=== PATIENT | female | born 1950 | race Caucasian/White ===

== ENCOUNTER 2019-03-23 12:27 | Emergency (ER) | payer OTHER ==
[2019-03-23] MEDS ORDERED: NA CHLORIDE 0.9% 1,000 ML ONE (13:05)
[2019-03-23 13:42] LABS: Absolute Lymphocytes (CBC) 1.2 K/uL (0.7-4.9); Basophils % 0.3 % (0-1.3); Hematocrit 39.9 % (36.0-45.0); Lymphocytes % 16.9 % (15.3-44.8); MPV 8.4 fL (7.6-11.3); RBC Red Blood Cell Count 4.66 M/uL (3.86-4.86)
[2019-03-23 13:55] LABS: Bilirubin Direct 0.1 mg/dL (0-0.2); Bilirubin Total 0.5 mg/dL (0.2-1.0); Potassium 3.7 mmol/L (3.5-5.1); Protein, Total 7.1 g/dL (6.4-8.2)
[2019-03-23 14:08] LABS: Urine Bacteria <20 /HPF (<20); Urine RBC <5 /HPF (NONE SEEN)
[2019-03-23 14:09] LABS: Urine Culture Reflex Order NOT NEEDED
[2019-03-23 14:30] LABS: Urine Blood NEGATIVE (NEG); Urine Glucose 2+ (NEG); Urine Protein NEGATIVE (NEG); Urine Specific Gravity 1.015 (1.005-1.030); Urine pH 5.5 (5.0-7.0)
--- NOTE | 2019-03-23 15:01 | RAD REPORT ---
EXAM DESCRIPTION: CTAbdomen Pelvis W Contrast - 03/23/2019 2:50 pm CLINICAL HISTORY: Abdominal pain. ABD PAIN COMPARISON: Abdomen Pelvis W Contrast dated 09/29/2016 TECHNIQUE: Biphasic CT imaging of the abdomen and pelvis was performed with 100 ml non-ionic IV cont rast. All CT scans are performed using dose optimization technique as appropriate and may include automated exposure control or mA/KV adjustment according to patient size. FINDINGS: The lung bases are clear. The liver, spleen, pancreas, adrenal glands and kidneys are within normal limits. Cholecystectomy. No bowel obstruction, free air, free fluid or abscess. Moderate stool is present in the colon with mu ltiple diverticula noted. No evidence of diverticulitis. The appendix is not identified as a discrete structure, however, no secondary findings of appendicitis are identified. No evidence of significa nt lymphadenopathy. No suspicious bony findings. IMPRESSION: No acute intra-abdominal or pelvic finding. Diverticulosis coli without diverticulitis.
--- NOTE | 2019-03-23 15:21 | EDPHYS ---
Physician Documentation [facility] Name: Kylee Lyles Age: 69 yrs Sex: Female : 1950 Arrival Date: 03/23/2019 Time: 12:30 Bed 17 Private MD: Wero Jernigan ED Physician Tru More HPI: 03/23 14:12 This 69 yrs old Female presents to ER via Ambulatory with complaints of pm1 Abdominal Pain. 14:12 The patient presents with abdominal pain right lower quadrant. Onset: The pm1 symptoms/episode began/occurred 6 week(s) ago, and became worse this morning. The symptoms do not radiate. Associated signs and symptoms: Pertinent negatives: nausea, vomiting, and diarrhea, chest pain, fever, shortness of breath. Associated signs and symptoms: Pertinent positives: Reports baseline urinary frequency. The symptoms are described as sharp. Modifying factors: The symptoms are alleviated by nothing, the symptoms are aggravated by nothing. Severity of pain: in the emergency department the pain has improved. The patient has not experienced similar symptoms in the past. The patient has not recently seen a physician. Historical: - Allergies: 12:38 No Known Allergies; aj1 - Home Meds: 12:38 metoprolol tartrate 50 mg Oral tab 1 tab 2 times per day [Active]; irbesartan 300 mg aj1 oral tab 1 tab once daily [Active]; pravastatin 40 mg oral tab 1 tab once daily [Active]; Jardiance 10 mg oral tab 1 tab once daily [Active]; Victoza 2-Jonathan 0.6 mg/0.1 mL (18 mg/3 mL) subcutaneous pnij 0.2 mL once daily [Active]; metformin 500 mg Oral Tb24 2 tabs 2 times per day [Active]; amlodipine 5 mg tab 1 tab once daily [Active]; aspirin 81 mg Oral chew 1 tab once daily [Active]; Probiotic oral oral daily [Active]; CoQ-10 oral oral daily [Active]; Fish Oil oral oral [Active]; multivitamin oral oral [Active]; - PMHx: 12:38 Diabetes - NIDDM; Hypertension; Hyperlipidemia; aj1 - Immunization history:: Flu vaccine is up to date. - Social history:: Smoking status: Patient/guardian denies using tobacco. - Ebola Screening: : Patient denies travel to an Ebola-affected area in the 21 days before illness onset. ROS: 14:12 Constitutional: Negative for fever, chills, and weight loss, Eyes: Negative for injury, pm1 pain, redness, and discharge, ENT: Negative for injury, pain, and discharge, Neck: Negative for injury, pain, and swelling, Cardiovascular: Negative for chest pain, palpitations, and edema, Respiratory: Negative for shortness of breath, cough, wheezing, and pleuritic chest pain. 14:12 Back: Negative for injury and pain. 14:12 MS/Extremity: Negative for injury and deformity, Skin: Negative for injury, rash, and discoloration. 14:12 Neuro: Negative for headache, weakness, numbness, tingling, and seizure. 14:12 Abdomen/GI: Positive for abdominal pain, Negative for nausea, vomiting, and diarrhea. 14:12 : Positive for urinary frequency, Negative for burning with urination. Exam: 14:12 Constitutional: This is a well developed, well nourished patient who is awake, alert, pm1 and in no acute distress. Head/Face: Normocephalic, atraumatic. Eyes: Pupils equal round and reactive to light, extra-ocular motions intact. Lids and lashes normal. Conjunctiva and sclera are non-icteric and not injected. Cornea within normal limits. Periorbital areas with no swelling, redness, or edema. ENT: Nares patent. No nasal discharge, no septal abnormalities noted. Tympanic membranes are normal and external auditory canals are clear. Oropharynx with no redness, swelling, or masses, exudates, or evidence of obstruction, uvula midline. Mucous membranes moist. Neck: Trachea midline, no thyromegaly or masses palpated, and no cervical lymphadenopathy. Supple, full range of motion without nuchal rigidity, or vertebral point tenderness. No Meningismus. Chest/axilla: Normal chest wall appearance and motion. Nontender with no deformity. No lesions are appreciated. Cardiovascular: Regular rate and rhythm with a normal S1 and S2. No gallops, murmurs, or rubs. Normal PMI, no JVD. No pulse deficits. Respiratory: Lungs have equal breath sounds bilaterally, clear to auscultation and percussion. No rales, rhonchi or wheezes noted. No increased work of breathing, no retractions or nasal flaring. 14:12 Back: No spinal tenderness. No costovertebral tenderness. Full range of motion. Skin: Warm, dry with normal turgor. Normal color with no rashes, no lesions, and no evidence of cellulitis. MS/ Extremity: Pulses equal, no cyanosis. Neurovascular intact. Full, normal range of motion. 14:12 Abdomen/GI: Inspection: obese Bowel sounds: normal, Palpation: soft, mild abdominal tenderness, in the right lower quadrant, mass, is not appreciated, rebound tenderness, is not appreciated. 14:12 Neuro: Orientation: is normal, Motor: is normal, moves all fours. 15:18 Abdomen/GI: Inspection: obese Bowel sounds: normal, Palpation: abdomen is soft and pm1 non-tender, in all quadrants, mass, is not appreciated, rebound tenderness, is not appreciated. Vital Signs: 12:38 BP 152 / 89; Pulse 72; Resp 18; Temp 97.0; Pulse Ox 96% on R/A; Weight 69.4 kg (R); aj1 Height 5 ft. 0 in. (152.40 cm) (R); Pain 2/10; 13:24 BP 150 / 77; Pulse 74; Resp 16; Pulse Ox 99% ; bp 14:20 BP 151 / 77; Pulse 80; Resp 18; Pulse Ox 97% ; bp 15:30 BP 153 / 75; Pulse 81; Resp 16; Temp 97; Pulse Ox 97% ; bp 12:38 Body Mass Index 29.88 (69.40 kg, 152.40 cm) aj1 MDM: 12:43 Patient medically screened. pm1 14:16 Data reviewed: vital signs. Data interpreted: Pulse oximetry: on room air is 99 %. pm1 Interpretation: normal. 15:19 Counseling: I had a detailed discussion with the patient and/or guardian regarding: the pm1 historical points, exam findings, and any diagnostic results supporting the discharge/admit diagnosis, lab results, radiology results. 15:19 Special discussion: Based on the patient's Hx, exam, and Dx evaluation, there is no pm1 indication for emergent surgery or inpatient Tx. It is understood by the patient/guardian that if the Sx's persist or worsen they need to return immediately for re-evaluation. 03/23 12:43 Order name: Basic Metabolic Panel; Complete Time: 14:37 pm1 03/23 12:43 Order name: CBC with Diff; Complete Time: 13:45 pm1 03/23 12:43 Order name: Creatinine for Radiology; Complete Time: 14:37 pm1 03/23 12:43 Order name: Hepatic Function; Complete Time: 14:37 pm1 03/23 12:43 Order name: Lipase; Complete Time: 14:37 pm1 03/23 12:55 Order name: Urine Microscopic Only; Complete Time: 14:37 pm1 03/23 12:43 Order name: IV Saline Lock; Complete Time: 13:25 pm1 03/23 12:43 Order name: Labs collected and sent; Complete Time: 13:25 pm1 03/23 12:54 Order name: CT Abd/Pelvis - PO and IV Contrast; Complete Time: 15:04 pm1 03/23 12:55 Order name: Urine Dipstick-Ancillary (obtain specimen); Complete Time: 13:25 pm1 03/23 13:44 Order name: Urine Dipstick--Ancillary (enter results); Complete Time: 14:37 mt Administered Medications: 13:10 Drug: NS 0.9% 1000 ml Route: IV; Rate: 1000 ml; Site: left antecubital; bp 15:51 Follow up: IV Status: Completed infusion; IV Intake: 1000ml bp Disposition: 17:36 Co-signature as Attending Physician, Tru More MD. rn Disposition: 03/23/19 15:20 Discharged to Home. Impression: Unspecified abdominal pain. - Condition is Stable. - Discharge Instructions: Abdominal Pain, Adult. - Prescriptions for Bentyl 20 mg Oral Tablet - take 1 tablet by ORAL route every 6 hours As needed; 20 tablet. - Medication Reconciliation Form, Thank You Letter, Antibiotic Education, Prescription Opioid Use form. - Follow up: Emergency Department; When: As needed; Reason: Worsening of condition. Follow up: Private Physician; When: 2 - 3 days; Reason: Recheck today's complaints, Continuance of care, Re-evaluation by your physician. - Problem is new. - Symptoms have improved. Signatures: Dispatcher [employer] EDMS Debra Johnson RN RN aj1 Tru More MD MD rn Marinas, Patrick, SENIOR CORE JAVA DEVELOPER SENIOR CORE JAVA DEVELOPER pm1 Wero Upton RN RN bp Corrections: (The following items were deleted from the chart) 15:52 15:20 03/23/2019 15:20 Discharged to Home. Impression: Unspecified abdominal pain. bp Condition is Stable. Forms are Medication Reconciliation Form, Thank You Letter, Antibiotic Education, Prescription Opioid Use. Follow up: Emergency Department; When: As needed; Reason: Worsening of condition. Follow up: Private Physician; When: 2 - 3 days; Reason: Recheck today's complaints, Continuance of care, Re-evaluation by your physician. Problem is new. Symptoms have improved. pm1
--- NOTE | 2019-03-23 15:21 | ER ---
Nurse's Notes [facility] Name: Kylee Lyles Age: 69 yrs Sex: Female : 1950 Arrival Date: 03/23/2019 Time: 12:30 Bed 17 Private MD: Wero Jernigan Diagnosis: Unspecified abdominal pain Presentation: 03/23 12:31 Presenting complaint: Patient states: RLQ pain since 0500 this morning. Reports that aj1 she has had this pain off and on for the past 6 weeks, but today the pain is more severe and persistent than it has been previously. Denies N/V/D. Transition of care: patient was not received from another setting of care. Onset of symptoms was March 23, 2019. Risk Assessment: Do you want to hurt yourself or someone else? Patient reports no desire to harm self or others. Initial Sepsis Screen: Does the patient meet any 2 criteria? No. Patient's initial sepsis screen is negative. Does the patient have a suspected source of infection? Yes: Acute abdominal pain. Care prior to arrival: None. 12:31 Method Of Arrival: Ambulatory [facility] 12:31 Acuity: COLLIN 3 aj1 Triage Assessment: 12:38 General: Appears in no apparent distress. comfortable, Behavior is calm, cooperative, aj1 appropriate for age. Pain: Complains of pain in right lower quadrant Pain currently is 2 out of 10 on a pain scale. Neuro: Level of Consciousness is awake, alert, obeys commands. Cardiovascular: Patient's skin is warm and dry. Respiratory: Airway is patent Respiratory effort is even, unlabored, Respiratory pattern is regular, symmetrical. GI: Reports lower abdominal pain. Historical: - Allergies: 12:38 No Known Allergies; aj1 - Home Meds: 12:38 metoprolol tartrate 50 mg Oral tab 1 tab 2 times per day [Active]; irbesartan 300 mg aj1 oral tab 1 tab once daily [Active]; pravastatin 40 mg oral tab 1 tab once daily [Active]; Jardiance 10 mg oral tab 1 tab once daily [Active]; Victoza 2-Jonathan 0.6 mg/0.1 mL (18 mg/3 mL) subcutaneous pnij 0.2 mL once daily [Active]; metformin 500 mg Oral Tb24 2 tabs 2 times per day [Active]; amlodipine 5 mg tab 1 tab once daily [Active]; aspirin 81 mg Oral chew 1 tab once daily [Active]; Probiotic oral oral daily [Active]; CoQ-10 oral oral daily [Active]; Fish Oil oral oral [Active]; multivitamin oral oral [Active]; - PMHx: 12:38 Diabetes - NIDDM; Hypertension; Hyperlipidemia; aj1 - Immunization history:: Flu vaccine is up to date. - Social history:: Smoking status: Patient/guardian denies using tobacco. - Ebola Screening: : Patient denies travel to an Ebola-affected area in the 21 days before illness onset. Screenin:43 Abuse screen: Denies threats or abuse. Denies injuries from another. Nutritional bp screening: No deficits noted. Tuberculosis screening: No symptoms or risk factors identified. Fall Risk None identified. Assessment: 12:43 General: SEE TRIAGE NOTE. bp 13:23 Reassessment: PT COMPLETED PO CHALLENGE, CT NOTIFIED. bp 15:49 Reassessment: PT D/C HOME AMBULATORY WITH FAMILY, DX WITH ABDOMINAL PAIN. bp Vital Signs: 12:38 BP 152 / 89; Pulse 72; Resp 18; Temp 97.0; Pulse Ox 96% on R/A; Weight 69.4 kg (R); aj1 Height 5 ft. 0 in. (152.40 cm) (R); Pain 2/10; 13:24 BP 150 / 77; Pulse 74; Resp 16; Pulse Ox 99% ; bp 14:20 BP 151 / 77; Pulse 80; Resp 18; Pulse Ox 97% ; bp 15:30 BP 153 / 75; Pulse 81; Resp 16; Temp 97; Pulse Ox 97% ; bp 12:38 Body Mass Index 29.88 (69.40 kg, 152.40 cm) aj1 ED Course: 12:30 Patient arrived in ED. mr 12:30 Wero Jernigan MD is Private Physician. mr 12:34 Triage completed. aj1 12:38 Arm band placed on Patient placed in an exam room. aj1 12:43 Wero Upton RN is Primary Nurse. bp 12:43 Reji Jane NP is PHCP. pm1 12:43 Tru More MD is Attending Physician. pm1 12:43 Patient has correct armband on for positive identification. Bed in low position. Call bp light in reach. Side rails up X2. Adult w/ patient. 13:22 Initial lab(s) drawn, by me, sent to lab. Inserted saline lock: 20 gauge in left lt1 antecubital area, using aseptic technique. 14:50 CT completed. Patient tolerated procedure well. Patient moved back from CT. kw1 14:50 CT Abd/Pelvis - PO and IV Contrast In Process Unspecified. EDMS 15:51 No provider procedures requiring assistance completed. IV discontinued, intact, bp bleeding controlled, No redness/swelling at site. Pressure dressing applied. Administered Medications: 13:10 Drug: NS 0.9% 1000 ml Route: IV; Rate: 1000 ml; Site: left antecubital; bp 15:51 Follow up: IV Status: Completed infusion; IV Intake: 1000ml bp Intake: 15:51 IV: 1000ml; Total: 1000ml. bp Outcome: 15:20 Discharge ordered by MD. pm1 15:49 Discharged to home ambulatory, with family. bp 15:49 Condition: stable 15:49 Discharge instructions given to patient, Instructed on discharge instructions, follow up and referral plans. medication usage, Demonstrated understanding of instructions, follow-up care, medications, Prescriptions given X 1. 15:52 Patient left the ED. bp Signatures: Dispatcher [employer] EDMS Debra Johnson RN RN aj1 Gema Silva mr Reji Jane, VETERINARIAN EPIDEMIOLOGIST VETERINARIAN EPIDEMIOLOGIST pm1 Wero Upton RN RN [place] kw1 Brigida Deluca lt1
[2019-03-23 16:02] VITALS: O2SAT 97
[2019-03-23 16:03] VITALS: BP 153/75; TEMP 97
== END 2019-03-23 15:52 | disposition home or self-care (01) ==
LOC: ER 12:27
DX: R10.31 Right lower quadrant pain (principal); I10 Essential (primary) hypertension; E11.9 Type 2 diabetes mellitus without complications; E78.5 Hyperlipidemia, unspecified; Z79.4 Long term (current) use of insulin; Z79.82 Long term (current) use of aspirin
CPT/HCPCS: 96361; 85025; 80048; 36415; 80076; 83690; 74177; 96360; 99284; Q9967; J7030; 81003; 81015

== ENCOUNTER 2020-10-13 14:06 | Emergency (ER) | payer OTHER ==
--- OUTSIDE RECORDS SUMMARY | 2020-10-13 14:08 | XMS REPORT | Continuity of Care Document ---
:1950 Author Organization [facility] t Address [address] [place] [address] Care Team Providers Name Role Phone Unavailable Unavailable Unavailable Payers Payer Name Policy Type Policy Number Effective Date Expiration Date S ource Problems This patient has no known problems. Allergies, Adverse Reactions, Alerts This patient has no known allergies or adverse reactions. Medications This patient has no known medications. Procedures This patient has no known procedures. Results Test Description Test Time Test Comments Results Result [facility] e Comments - MRI UP [facility] W/O 2020-02-19 Patient Name: CONT RT 14:06:00 LUANN KAY Unit No: [id number] EXAMS: CPT CODE: [id number] MRI UP [facility] W/[place] [id number] MRI OF THE RIGHT SHOULDER DIAGNOSIS: 1. Partial tear of the superior subscapularis tendon and of the proximal biceps tendon with tendinosis and medial subluxation of the biceps tendon. There is an associated SLAP tear of the labrum which extends into the posterior superior labrum. 2. Low-grade partial-thickness intrasubstance tearing of the supraspinatus tendon without tendon retraction or muscular atrophy. COMMENT: COMPARISON: No prior exams available. Scans were performed in the paracoronal, parasagittal and axial planes utilizing T1 , spin density with fat saturation and T2-weighting with and without fat saturation. The infraspinatus tendon is within normal limits in appearance. The remainder the rotator cuff is as described. The acromion is horizontal with AC joint degenerative change. The labrum is torn as noted. A moderate joint effusion is seen with a small amount of bursal fluid. at 1406 Reported and signed by: Praneeth Varma MD CC: Daniel Stallings MD Technologist: Candace Gonzalez(R) Transcribed D/ (2181) [facility] NAME: LUANN KAY [address] [place] [address] PHYS: Daniel Gomez MD : 1950 AGE: 70 SEX: F [place] [id number] LOC: Y.MRI PHONE #: [phone] EXAM DATE: 02/19/2020 STATUS: REG CLI FAX #: [phone] RAD #: D/C DT PAGE 1 Signed Report Patient Name: LUANN KAY Unit No: [id number] EXAMS: CPT CODE: [id number] MRI UP JNT W/[place] [id number] <Continued> Orig Print D/T: S: 02/19/2020 (2451) [facility] NAME: LUANN KAY [address] [place] [address] PHYS: Daniel Gomez MD : 1950 AGE: 70 SEX: F [place] [phone] LOC: Y.MRI PHONE #: [phone] EXAM DATE: 02/19/2020 STATUS: REG CLI FAX #: [phone] RAD #: D/C DT PAGE 2 Signed Report
[2020-10-13] MEDS ORDERED: BUPIVACAINE 0.5% PF 10 ML VIAL ONE (15:56)
[2020-10-13] MEDS ORDERED: LIDOCAINE 1% MPF 5 ML VIAL ONE (15:56)
--- NOTE | 2020-10-13 16:04 | ER ---
Nurse's Notes [facility] Name: Kylee Lyles Age: 70 yrs Sex: Female : 1950 Arrival Date: 10/13/2020 Time: 14:10 Bed 14 Private MD: Diagnosis: Cutaneous abscess of left upper limb-paronychia left index finger Presentation: 10/13 14:24 Chief complaint: Patient states: L hand 2nd digit pain, swelling to nailbed area for [address] Lainez, been on Augmentin since Sunday. States it hurts a lot when she bumps it. States her fever is higher than normal for her (usual temp. 97 range). Coronavirus screen: Client denies travel out of the [place] in the last 14 days. At this time, the client does not indicate any symptoms associated with coronavirus-19. Ebola Screen: Patient denies travel to an Ebola-affected area in the 21 days before illness onset. Initial Sepsis Screen: Does the patient meet any 2 criteria? No. Patient's initial sepsis screen is negative. Does the patient have a suspected source of infection? Yes: Skin breakdown/wound. Risk Assessment: Do you want to hurt yourself or someone else? Patient reports no desire to harm self or others. Onset of symptoms was October 07, 2020. 14:24 Method Of Arrival: Ambulatory ll1 14:24 Acuity: COLLIN 4 ll1 Historical: - Allergies: 14:29 No Known Allergies; ll1 - PMHx: 14:29 Diabetes - NIDDM; Hyperlipidemia; Hypertension; ll1 - PSHx: 14:29 bone spur removed from toe; thumb SX-L; rotator cuff repair; tumor removed L ll1 Lung-benign; Cholecystectomy; ; - Immunization history:: Client reports receiving the 2nd dose of the Covid vaccine, Flu vaccine is up to date. - Social history:: Smoking status: Patient denies any tobacco usage or history of. Screenin:28 Abuse screen: Denies threats or abuse. Denies injuries from another. Nutritional zb screening: No deficits noted. Tuberculosis screening: No symptoms or risk factors identified. Fall Risk None identified. Assessment: 15:12 Reassessment: ECP at bedside. zb 15:20 General: Appears in no apparent distress. Behavior is calm, cooperative, appropriate zb for age. Pain: Complains of pain in left index finger Pain currently is 0 out of 10 on a pain scale. at worst was 10 out of 10 on a pain scale. Neuro: No deficits noted. Cardiovascular: No deficits noted. Respiratory: No deficits noted. GI: No deficits noted. : No deficits noted. Derm: Abscess located on left index finger is dime sized, is red, is raised. Musculoskeletal: Circulation, motion, and sensation intact. Range of motion: intact in all extremities. 16:29 Reassessment: Patient appears in no apparent distress at this time. Patient and/or zb family updated on plan of care and expected duration. Pain level reassessed. Patient is alert, oriented x 3, equal unlabored respirations, skin warm/dry/pink. wound shobha wrapped. patient ready to go. d/c instructions given gait even and steady. Vital Signs: 14:24 BP 183 / 65; Pulse 78; Resp 17; Temp 98.4; Pulse Ox 96% ; Weight 67.59 kg; Pain 7/10; ll1 15:36 BP 164 / 82; Pulse 78; Resp 16; Pulse Ox 100% on R/A; zb ED Course: 14:10 Patient arrived in ED. as 14:27 Triage completed. ll1 14:29 Arm band placed on. ll1 14:30 Polo Brady PA is PHCP. cp 14:30 Tru More MD is Attending Physician. cp 15:10 Diana Corea, ALFREDO is Primary Nurse. zb 15:10 Patient placed in an exam room, on a stretcher. ll1 16:28 No provider procedures requiring assistance completed. Patient did not have IV access zb during this emergency room visit. 16:29 Patient has correct armband on for positive identification. Bed in low position. Call zb light in reach. Side rails up X 1. Pulse ox on. NIBP on. Door closed. Noise minimized. Administered Medications: 15:38 Drug: Lidocaine (1 %) 5 mg {Note: Give to ECP to administer.} Route: Infiltration; zb 16:20 Follow up: Response: No adverse reaction; Marked relief of symptoms zb 15:38 Drug: Marcaine (bupivacaine) (0.5 %) 5 ml {Note: Give to ECP to adminster.} Volume: 10 zb ml; Route: Infiltration; 16:20 Follow up: Response: No adverse reaction; Marked relief of symptoms zb Outcome: 16:03 Discharge ordered by . cp 16:29 Discharged to home ambulatory. zb 16:29 Condition: stable 16:29 Discharge instructions given to patient, Instructed on discharge instructions, follow up and referral plans. medication usage, Demonstrated understanding of instructions, follow-up care, medications, Prescriptions given X 1. 16:29 Patient left the ED. zb Signatures: Krysten Ford Corey, PA PA cp Lewis, Lynsay, ALFREDO RN ll1 Diana Corea RN RN zb Corrections: (The following items were deleted from the chart) 23:29 16:30 Reassessment: Patient appears in no apparent distress at this time. Patient zb and/or family updated on plan of care and expected duration. Pain level reassessed. Patient is alert, oriented x 3, equal unlabored respirations, skin warm/dry/pink. wound shobha wrapped. patient ready to go. d/c instructions given gait even and steady zb
--- NOTE | 2020-10-13 16:04 | EDPHYS ---
Physician Documentation [facility] Name: Kylee Lyles Age: 70 yrs Sex: Female : 1950 Arrival Date: 10/13/2020 Time: 14:10 Bed 14 Private MD: ED Physician Tru More HPI: 10/13 15:20 This 70 yrs old Female presents to ER via Ambulatory with complaints of cp Finger Infection. 15:20 The patient presents with an abscess of the left index finger, the patient presents cp with a swollen area of the left index finger. Description: erythematous, swollen. Onset: The symptoms/episode began/occurred last week. Associated signs and symptoms: Pertinent negatives: discharge, drainage, fever. Patient reports she is currently taking Augmentin for infection of left index finger. Historical: - Allergies: 14:29 No Known Allergies; ll1 - PMHx: 14:29 Diabetes - NIDDM; Hyperlipidemia; Hypertension; ll1 - PSHx: 14:29 bone spur removed from toe; thumb SX-L; rotator cuff repair; tumor removed L ll1 Lung-benign; Cholecystectomy; ; - Immunization history:: Client reports receiving the 2nd dose of the Covid vaccine, Flu vaccine is up to date. - Social history:: Smoking status: Patient denies any tobacco usage or history of. ROS: 15:25 Skin: Positive for abscess, swelling, of the left index finger. cp 15:25 Constitutional: Negative for chills, fever. cp 15:25 All other systems are negative. Exam: 15:30 Constitutional: The patient appears in no acute distress, alert, awake, non-toxic, well cp developed, well nourished. 15:30 Head/Face: Normocephalic, atraumatic. cp 15:30 Cardiovascular: Rate: normal. 15:30 Respiratory: the patient does not display signs of respiratory distress, Respirations: normal. 15:30 Skin: abscess, that is small, of the lateral nail margin of left index finger, with surrounding cellulitis, that is mild. Vital Signs: 14:24 BP 183 / 65; Pulse 78; Resp 17; Temp 98.4; Pulse Ox 96% ; Weight 67.59 kg; Pain 7/10; ll1 15:36 BP 164 / 82; Pulse 78; Resp 16; Pulse Ox 100% on R/A; zb Procedures: 16:00 I \T\ D: Incision and drainage was performed for an abscess of the lateral margin on nail cp left index finger Prepped with Betadine, Anesthetized with 5 ccs of 1% lidocaine w/o epi and 0.5% marcaine. Incised with #11 blade. Drained small amount purulent fluid. Dressin by 2 gauze and coban the patient tolerated the procedure well. MDM: 15:13 Patient medically screened. cp 15:30 Differential diagnosis: abscess, cellulitis, insect bite. cp 16:02 Data reviewed: vital signs, nurses notes, and as a result, I will discharge patient. cp 16:02 Counseling: I had a detailed discussion with the patient and/or guardian regarding: the cp historical points, exam findings, and any diagnostic results supporting the discharge/admit diagnosis, to return to the emergency department if symptoms worsen or persist or if there are any questions or concerns that arise at home. Response to treatment: the patient's symptoms have markedly improved after treatment, and as a result, I will discharge patient. Administered Medications: 15:38 Drug: Lidocaine (1 %) 5 mg {Note: Give to ECP to administer.} Route: Infiltration; zb 16:20 Follow up: Response: No adverse reaction; Marked relief of symptoms zb 15:38 Drug: Marcaine (bupivacaine) (0.5 %) 5 ml {Note: Give to ECP to adminster.} Volume: 10 zb ml; Route: Infiltration; 16:20 Follow up: Response: No adverse reaction; Marked relief of symptoms zb Disposition: 16:30 Chart complete. cp 17:30 Co-signature as Attending Physician, Tru More MD. rn Disposition: 10/13/20 16:03 Discharged to Home. Impression: Cutaneous abscess of left upper limb - paronychia left index finger. - Condition is Stable. - Discharge Instructions: Incision and Drainage, Paronychia. - Prescriptions for Bactrim DS 800- 160 mg Oral Tablet - take 1 tablet by ORAL route every 12 hours for 7 days; 14 tablet. - Medication Reconciliation Form, Thank You Letter, Antibiotic Education, Prescription Opioid Use form. - Follow up: Private Physician; When: 1 - 2 days; Reason: Worsening of condition. - Problem is new. - Symptoms have improved. Signatures: Tru More MD MD rn Polo Brady PA PA cp Isabela Robins RN RN ll1 Diana Corea RN RN zb Corrections: (The following items were deleted from the chart) 16:29 16:03 10/13/2020 16:03 Discharged to Home. Impression: Cutaneous abscess of left upper zb limb - paronychia left index finger. Condition is Stable. Forms are Medication Reconciliation Form, Thank You Letter, Antibiotic Education, Prescription Opioid Use. Follow up: Private Physician; When: 1 - 2 days; Reason: Worsening of condition. Problem is new. Symptoms have improved. cp
[2020-10-13 16:35] VITALS: BP 183/65; TEMP 98.4; O2SAT 96
== END 2020-10-13 16:29 | disposition home or self-care (01) ==
LOC: ER 14:06
PROC: 0J9K0ZZ Drainage of Left Hand Subcutaneous Tissue and Fascia, Open Approach (ICD-10-PCS; principal; 2020-10-13)
DX: L03.012 Cellulitis of left finger (principal); I10 Essential (primary) hypertension
CPT/HCPCS: 99283

== ENCOUNTER → 2023-05-20 | Emergency (ER) | payer OTHER ==
[~2023-05-20] MED LIST: dexAMETHasone 10 MG/ML VIAL ONE
--- OUTSIDE RECORDS SUMMARY | 2023-05-20 15:50 | XMS REPORT | Continuity of Care Document ---
Author Name Unknown Address [address] [facility] [address] [place] [address] [facility] Address [address] [facility] [address] [place] [address] Care Team Providers Care Saw Filer Name Role Phone Tommy Lainez Attending Clinician Unavailable Daniel Stallings Attending Clinician Unavailab SURENDRA Garvey Admitting Clinician Unavailable Payers Payer Name Policy Type Policy Number Effective Date Expirati on Date Source Problems Condition Name Condition Details Condition Category Status Onset Date Resolution Date Last Treatment Date Treating Clinician Comments Source [id number] Essential (primary) hypertensi on Problem Common [facility] Chronic sinusitis Sinus infection Problem [facility] [id number] Irritable bowel syndrome with both constipati on and diarrhea Problem [facility] [id number] Type 2 diabetes mellitus with hyperglyce jonny, without long-term current use of insulin Problem [facility] [id number] Mixed hyperlipid emia Problem [facility] [id number] Primary osteoarthr itis of left knee Problem [facility] Social History Social Habit Start Date Stop Date Quantity Comments Source History of Tobacco Use [facility] Sex Assigned At [facility] Smoking Status Start Date Stop Date Source Never Smoker [facility] Medications Ordered Medication Name Filled Medication Name Start Date Stop Date Current Medication? Ordering Clinician Indication Dosage Frequency Signature (SIG) Comments Components Source NovoTwist Pen Needle 32G X 5 MM NovoTwist Pen Needle 32G X 5 MM 08-03 00:00: 00 No NovoTwist Pen Needle 32G X 5 MM NovoTwist Pen Needle 32G X 5 MM NovoTwist Pen Needle 32G X 5 MM 08-03 00:00: 00 No NovoTwist Pen Needle 32G X 5 MM NovoTwist Pen Needle 32G X 5 MM NovoTwist Pen Needle 32G X 5 MM 08-03 00:00: 00 No NovoTwist Pen Needle 32G X 5 MM Pen [place] 32G X 5 MM Pen [place] 32G X 5 MM 2020-05 00:00: 00 No Pen [place] 32G X 5 MM Pen [place] 32G X 5 MM Pen [place] 32G X 5 MM 2020-05 2 00:00: 00 No Pen [place] 32G X 5 MM Pen [place] 32G X 5 MM Pen [place] 32G X 5 MM 2020-05 00:00: 00 No Pen [place] 32G X 5 MM Estradiol 10 MCG Estradiol 10 MCG No Estradiol 10 MCG Nitroglycer in 400 MCG/SPRAY Nitroglycer in 400 MCG/SPRAY No Nitroglyce rin 400 MCG/SPRAY Pravastatin Sodium 40 MG Pravastatin Sodium 40 MG No Pravastati n Sodium 40 MG Aspirin 81 81 MG Aspirin 81 81 MG No 1{table t} QD Aspirin 81 81 MG Jardiance 10 MG Jardiance 10 MG No QD Jardiance 10 MG Fish Oil 1000 MG Fish Oil 1000 MG No 1{capsu le} QD Fish Oil 1000 MG Probiotic - Probiotic - No Pr obiotic - metFORMIN HCl ER 500 MG metFORMIN HCl ER 500 MG No metFORMIN HCl ER 500 MG Multi Vitamin Multi Vitamin No Multi Vitamin Pravastatin Sodium 40 MG Pravastatin Sodium 40 MG No 1{table t} QD Pravastati n Sodium 40 MG Nasacort AQ Nasacort AQ No Na sacort AQ tiZANidine HCl 2 MG tiZANidine HCl 2 MG No 1{table t_as_ne eded} QD tiZANidine HCl 2 MG Tylenol Tylenol No Tylenol Irbesartan 300 MG Irbesartan 300 MG No QD Irbesartan 300 MG Victoza 18 MG/3ML Victoza 18 MG/3ML No QD Victoza 18 MG/3ML Pravastatin Sodium 40 MG Pravastatin Sodium 40 MG No Pravastati n Sodium 40 MG Tylenol Tylenol No Tylenol metFORMIN HCl ER 500 MG metFORMIN HCl ER 500 MG No metFORMIN HCl ER 500 MG Pravastatin Sodium 40 MG Pravastatin Sodium 40 MG No 1{table t} QD Pravastati n Sodium 40 MG Nitroglycer in 400 MCG/SPRAY Nitroglycer in 400 MCG/SPRAY No Nitroglyce rin 400 MCG/SPRAY Victoza 18 MG/3ML Victoza 18 MG/3ML No QD Victoza 18 MG/3ML Nasacort AQ Nasacort AQ No Na sacort AQ metFORMIN HCl ER 500 MG metFORMIN HCl ER 500 MG No BID metFORMIN HCl ER 500 MG NovoTwist Pen Needle 32G X 5 MM NovoTwist Pen Needle 32G X 5 MM No NovoTwist Pen Needle 32G X 5 MM Meloxicam 7.5 MG Meloxicam 7.5 MG No 1{table t} QD Meloxicam 7.5 MG Fish Oil 1000 MG Fish Oil 1000 MG No 1{capsu le} QD Fish Oil 1000 MG Probiotic - Probiotic - No Pr obiotic - CoQ-10 150 MG CoQ-10 150 MG No CoQ-10 150 MG Irbesartan 300 MG Irbesartan 300 MG No QD Irbesartan 300 MG tiZANidine HCl 2 MG tiZANidine HCl 2 MG No 1{table t_as_ne eded} QD tiZANidine HCl 2 MG Aspirin 81 81 MG Aspirin 81 81 MG No 1{table t} QD Aspirin 81 81 MG Metoprolol Tartrate 50 MG Metoprolol Tartrate 50 MG No Metoprolol Tartrate 50 MG Victoza 18 MG/3ML Victoza 18 MG/3ML No QD Victoza 18 MG/3ML Estradiol 10 MCG Estradiol 10 MCG No Estradiol 10 MCG amLODIPine Besylate 5 MG amLODIPine Besylate 5 MG No amLODIPine Besylate 5 MG Jardiance 10 MG Jardiance 10 MG No QD Jardiance 10 MG Multi Vitamin Multi Vitamin No Multi Vitamin Probiotic - Probiotic - No Pr obiotic - amLODIPine Besylate 5 MG amLODIPine Besylate 5 MG No amLODIPine Besylate 5 MG Jardiance 10 MG Jardiance 10 MG No QD Jardiance 10 MG Aspirin 81 81 MG Aspirin 81 81 MG No 1{table t} QD Aspirin 81 81 MG Fish Oil 1000 MG Fish Oil 1000 MG No 1{capsu le} QD Fish Oil 1000 MG Metoprolol Tartrate 50 MG Metoprolol Tartrate 50 MG No Metoprolol Tartrate 50 MG Pravastatin Sodium 40 MG Pravastatin Sodium 40 MG No 1{table t} QD Pravastati n Sodium 40 MG Nitroglycer in 400 MCG/SPRAY Nitroglycer in 400 MCG/SPRAY No Nitroglyce rin 400 MCG/SPRAY NovoTwist Pen Needle 32G X 5 MM NovoTwist Pen Needle 32G X 5 MM No NovoTwist Pen Needle 32G X 5 MM Pen [place] 32G X 5 MM Pen [place] 32G X 5 MM No Pen [place] 32G X 5 MM Metoprolol Tartrate 50 MG Metoprolol Tartrate 50 MG No Metoprolol Tartrate 50 MG Meloxicam 7.5 MG Meloxicam 7.5 MG No 1{table t} QD Meloxicam 7.5 MG Pravastatin Sodium 40 MG Pravastatin Sodium 40 MG No Pravastati n Sodium 40 MG Multi Vitamin Multi Vitamin No Multi Vitamin Victoza 18 MG/3ML Victoza 18 MG/3ML No QD Victoza 18 MG/3ML Tylenol Tylenol No Tylenol CoQ-10 150 MG CoQ-10 150 MG No CoQ-10 150 MG Estradiol 10 MCG Estradiol 10 MCG No Estradiol 10 MCG Irbesartan 300 MG Irbesartan 300 MG No QD Irbesartan 300 MG metFORMIN HCl ER 500 MG metFORMIN HCl ER 500 MG No BID metFORMIN HCl ER 500 MG Victoza 18 MG/3ML Victoza 18 MG/3ML No QD Victoza 18 MG/3ML tiZANidine HCl 2 MG tiZANidine HCl 2 MG No 1{table t_as_ne eded} QD tiZANidine HCl 2 MG Nasacort AQ Nasacort AQ No Na sacort AQ metFORMIN HCl ER 500 MG metFORMIN HCl ER 500 MG No metFORMIN HCl ER 500 MG Probiotic - Probiotic - No Pr obiotic - amLODIPine Besylate 5 MG amLODIPine Besylate 5 MG No amLODIPine Besylate 5 MG Jardiance 10 MG Jardiance 10 MG No QD Jardiance 10 MG Aspirin 81 81 MG Aspirin 81 81 MG No 1{table t} QD Aspirin 81 81 MG Fish Oil 1000 MG Fish Oil 1000 MG No 1{capsu le} QD Fish Oil 1000 MG Metoprolol Tartrate 50 MG Metoprolol Tartrate 50 MG No Metoprolol Tartrate 50 MG Pravastatin Sodium 40 MG Pravastatin Sodium 40 MG No 1{table t} QD Pravastati n Sodium 40 MG Nitroglycer in 400 MCG/SPRAY Nitroglycer in 400 MCG/SPRAY No Nitroglyce rin 400 MCG/SPRAY Tylenol Tylenol No Tylenol NovoTwist Pen Needle 32G X 5 MM NovoTwist Pen Needle 32G X 5 MM No NovoTwist Pen Needle 32G X 5 MM Pen [place] 32G X 5 MM Pen [place] 32G X 5 MM No Pen [place] 32G X 5 MM Metoprolol Tartrate 50 MG Metoprolol Tartrate 50 MG No Metoprolol Tartrate 50 MG Meloxicam 7.5 MG Meloxicam 7.5 MG No 1{table t} QD Meloxicam 7.5 MG Pravastatin Sodium 40 MG Pravastatin Sodium 40 MG No Pravastati n Sodium 40 MG Multi Vitamin Multi Vitamin No Multi Vitamin Victoza 18 MG/3ML Victoza 18 MG/3ML No QD Victoza 18 MG/3ML Tylenol Tylenol No Tylenol CoQ-10 150 MG CoQ-10 150 MG No CoQ-10 150 MG Estradiol 10 MCG Estradiol 10 MCG No Estradiol 10 MCG Multi Vitamin Multi Vitamin No Multi Vitamin Irbesartan 300 MG Irbesartan 300 MG No QD Irbesartan 300 MG metFORMIN HCl ER 500 MG metFORMIN HCl ER 500 MG No BID metFORMIN HCl ER 500 MG Victoza 18 MG/3ML Victoza 18 MG/3ML No QD Victoza 18 MG/3ML tiZANidine HCl 2 MG tiZANidine HCl 2 MG No 1{table t_as_ne eded} QD tiZANidine HCl 2 MG Nasacort AQ Nasacort AQ No Na sacort AQ metFORMIN HCl ER 500 MG metFORMIN HCl ER 500 MG No metFORMIN HCl ER 500 MG Nitroglycer in 400 MCG/SPRAY Nitroglycer in 400 MCG/SPRAY No Nitroglyce rin 400 MCG/SPRAY Probiotic - Probiotic - No Pr obiotic - amLODIPine Besylate 5 MG amLODIPine Besylate 5 MG No amLODIPine Besylate 5 MG Jardiance 10 MG Jardiance 10 MG No QD Jardiance 10 MG Aspirin 81 81 MG Aspirin 81 81 MG No 1{table t} QD Aspirin 81 81 MG Fish Oil 1000 MG Fish Oil 1000 MG No 1{capsu le} QD Fish Oil 1000 MG Metoprolol Tartrate 50 MG Metoprolol Tartrate 50 MG No Metoprolol Tartrate 50 MG Pravastatin Sodium 40 MG Pravastatin Sodium 40 MG No 1{table t} QD Pravastati n Sodium 40 MG Nitroglycer in 400 MCG/SPRAY Nitroglycer in 400 MCG/SPRAY No Nitroglyce rin 400 MCG/SPRAY NovoTwist Pen Needle 32G X 5 MM NovoTwist Pen Needle 32G X 5 MM No NovoTwist Pen Needle 32G X 5 MM Pen [place] 32G X 5 MM Pen [place] 32G X 5 MM No Pen [place] 32G X 5 MM Aspirin 81 81 MG Aspirin 81 81 MG No 1{table t} QD Aspirin 81 81 MG Metoprolol Tartrate 50 MG Metoprolol Tartrate 50 MG No Metoprolol Tartrate 50 MG Meloxicam 7.5 MG Meloxicam 7.5 MG No 1{table t} QD Meloxicam 7.5 MG Pravastatin Sodium 40 MG Pravastatin Sodium 40 MG No Pravastati n Sodium 40 MG Multi Vitamin Multi Vitamin No Multi Vitamin Victoza 18 MG/3ML Victoza 18 MG/3ML No QD Victoza 18 MG/3ML Tylenol Tylenol No Tylenol CoQ-10 150 MG CoQ-10 150 MG No CoQ-10 150 MG Estradiol 10 MCG Estradiol 10 MCG No Estradiol 10 MCG Irbesartan 300 MG Irbesartan 300 MG No QD Irbesartan 300 MG metFORMIN HCl ER 500 MG metFORMIN HCl ER 500 MG No BID metFORMIN HCl ER 500 MG Pravastatin Sodium 40 MG Pravastatin Sodium 40 MG No Pravastati n Sodium 40 MG Victoza 18 MG/3ML Victoza 18 MG/3ML No QD Victoza 18 MG/3ML tiZANidine HCl 2 MG tiZANidine HCl 2 MG No 1{table t_as_ne eded} QD tiZANidine HCl 2 MG Nasacort AQ Nasacort AQ No Na sacort AQ metFORMIN HCl ER 500 MG metFORMIN HCl ER 500 MG No metFORMIN HCl ER 500 MG Estradiol 10 MCG Estradiol 10 MCG No Estradiol 10 MCG Probiotic - Probiotic - No Pr obiotic - amLODIPine Besylate 5 MG amLODIPine Besylate 5 MG No amLODIPine Besylate 5 MG Jardiance 10 MG Jardiance 10 MG No QD Jardiance 10 MG Aspirin 81 81 MG Aspirin 81 81 MG No 1{table t} QD Aspirin 81 81 MG Fish Oil 1000 MG Fish Oil 1000 MG No 1{capsu le} QD Fish Oil 1000 MG Metoprolol Tartrate 50 MG Metoprolol Tartrate 50 MG No Metoprolol Tartrate 50 MG Pravastatin Sodium 40 MG Pravastatin Sodium 40 MG No 1{table t} QD Pravastati n Sodium 40 MG Nitroglycer in 400 MCG/SPRAY Nitroglycer in 400 MCG/SPRAY No Nitroglyce rin 400 MCG/SPRAY NovoTwist Pen Needle 32G X 5 MM NovoTwist Pen Needle 32G X 5 MM No NovoTwist Pen Needle 32G X 5 MM Pen [place] 32G X 5 MM Pen [place] 32G X 5 MM No Pen [place] 32G X 5 MM Metoprolol Tartrate 50 MG Metoprolol Tartrate 50 MG No Metoprolol Tartrate 50 MG Meloxicam 7.5 MG Meloxicam 7.5 MG No 1{table t} QD Meloxicam 7.5 MG Pravastatin Sodium 40 MG Pravastatin Sodium 40 MG No Pravastati n Sodium 40 MG Multi Vitamin Multi Vitamin No Multi Vitamin Victoza 18 MG/3ML Victoza 18 MG/3ML No QD Victoza 18 MG/3ML Tylenol Tylenol No Tylenol CoQ-10 150 MG CoQ-10 150 MG No CoQ-10 150 MG Estradiol 10 MCG Estradiol 10 MCG No Estradiol 10 MCG Irbesartan 300 MG Irbesartan 300 MG No QD Irbesartan 300 MG metFORMIN HCl ER 500 MG metFORMIN HCl ER 500 MG No BID metFORMIN HCl ER 500 MG Victoza 18 MG/3ML Victoza 18 MG/3ML No QD Victoza 18 MG/3ML Victoza 18 MG/3ML Victoza 18 MG/3ML No QD Victoza 18 MG/3ML tiZANidine HCl 2 MG tiZANidine HCl 2 MG No 1{table t_as_ne eded} QD tiZANidine HCl 2 MG Nasacort AQ Nasacort AQ No Na sacort AQ metFORMIN HCl ER 500 MG metFORMIN HCl ER 500 MG No metFORMIN HCl ER 500 MG metFORMIN HCl ER 500 MG metFORMIN HCl ER 500 MG No BID metFORMIN HCl ER 500 MG amLODIPine Besylate 5 MG amLODIPine Besylate 5 MG No amLODIPine Besylate 5 MG Probiotic - Probiotic - No Pr obiotic - amLODIPine Besylate 5 MG amLODIPine Besylate 5 MG No amLODIPine Besylate 5 MG Jardiance 10 MG Jardiance 10 MG No QD Jardiance 10 MG Aspirin 81 81 MG Aspirin 81 81 MG No 1{table t} QD Aspirin 81 81 MG Fish Oil 1000 MG Fish Oil 1000 MG No 1{capsu le} QD Fish Oil 1000 MG Metoprolol Tartrate 50 MG Metoprolol Tartrate 50 MG No Metoprolol Tartrate 50 MG Pravastatin Sodium 40 MG Pravastatin Sodium 40 MG No 1{table t} QD Pravastati n Sodium 40 MG Nitroglycer in 400 MCG/SPRAY Nitroglycer in 400 MCG/SPRAY No Nitroglyce rin 400 MCG/SPRAY NovoTwist Pen Needle 32G X 5 MM NovoTwist Pen Needle 32G X 5 MM No NovoTwist Pen Needle 32G X 5 MM Pen [place] 32G X 5 MM Pen [place] 32G X 5 MM No Pen [place] 32G X 5 MM Probiotic - Probiotic - No Pr obiotic - Metoprolol Tartrate 50 MG Metoprolol Tartrate 50 MG No Metoprolol Tartrate 50 MG Meloxicam 7.5 MG Meloxicam 7.5 MG No 1{table t} QD Meloxicam 7.5 MG Pravastatin Sodium 40 MG Pravastatin Sodium 40 MG No Pravastati n Sodium 40 MG Multi Vitamin Multi Vitamin No Multi Vitamin Victoza 18 MG/3ML Victoza 18 MG/3ML No QD Victoza 18 MG/3ML Tylenol Tylenol No Tylenol CoQ-10 150 MG CoQ-10 150 MG No CoQ-10 150 MG Estradiol 10 MCG Estradiol 10 MCG No Estradiol 10 MCG Irbesartan 300 MG Irbesartan 300 MG No QD Irbesartan 300 MG metFORMIN HCl ER 500 MG metFORMIN HCl ER 500 MG No BID metFORMIN HCl ER 500 MG Pravastatin Sodium 40 MG Pravastatin Sodium 40 MG No 1{table t} QD Pravastati n Sodium 40 MG Victoza 18 MG/3ML Victoza 18 MG/3ML No QD Victoza 18 MG/3ML tiZANidine HCl 2 MG tiZANidine HCl 2 MG No 1{table t_as_ne eded} QD tiZANidine HCl 2 MG Nasacort AQ Nasacort AQ No Na sacort AQ metFORMIN HCl ER 500 MG metFORMIN HCl ER 500 MG No metFORMIN HCl ER 500 MG Victoza 18 MG/3ML Victoza 18 MG/3ML No QD Victoza 18 MG/3ML Fish Oil 1000 MG Fish Oil 1000 MG No 1{capsu le} QD Fish Oil 1000 MG Probiotic - Probiotic - No Pr obiotic - amLODIPine Besylate 5 MG amLODIPine Besylate 5 MG No amLODIPine Besylate 5 MG Jardiance 10 MG Jardiance 10 MG No QD Jardiance 10 MG Aspirin 81 81 MG Aspirin 81 81 MG No 1{table t} QD Aspirin 81 81 MG Fish Oil 1000 MG Fish Oil 1000 MG No 1{capsu le} QD Fish Oil 1000 MG Metoprolol Tartrate 50 MG Metoprolol Tartrate 50 MG No Metoprolol Tartrate 50 MG Pravastatin Sodium 40 MG Pravastatin Sodium 40 MG No 1{table t} QD Pravastati n Sodium 40 MG Nitroglycer in 400 MCG/SPRAY Nitroglycer in 400 MCG/SPRAY No Nitroglyce rin 400 MCG/SPRAY metFORMIN HCl ER 500 MG metFORMIN HCl ER 500 MG No metFORMIN HCl ER 500 MG NovoTwist Pen Needle 32G X 5 MM NovoTwist Pen Needle 32G X 5 MM No NovoTwist Pen Needle 32G X 5 MM Pen [place] 32G X 5 MM Pen [place] 32G X 5 MM No Pen [place] 32G X 5 MM Metoprolol Tartrate 50 MG Metoprolol Tartrate 50 MG No Metoprolol Tartrate 50 MG Meloxicam 7.5 MG Meloxicam 7.5 MG No 1{table t} QD Meloxicam 7.5 MG Pravastatin Sodium 40 MG Pravastatin Sodium 40 MG No Pravastati n Sodium 40 MG Multi Vitamin Multi Vitamin No Multi Vitamin Victoza 18 MG/3ML Victoza 18 MG/3ML No QD Victoza 18 MG/3ML Tylenol Tylenol No Tylenol CoQ-10 150 MG CoQ-10 150 MG No CoQ-10 150 MG Estradiol 10 MCG Estradiol 10 MCG No Estradiol 10 MCG Jardiance 10 MG Jardiance 10 MG No QD Jardiance 10 MG Irbesartan 300 MG Irbesartan 300 MG No QD Irbesartan 300 MG metFORMIN HCl ER 500 MG metFORMIN HCl ER 500 MG No BID metFORMIN HCl ER 500 MG Victoza 18 MG/3ML Victoza 18 MG/3ML No QD Victoza 18 MG/3ML tiZANidine HCl 2 MG tiZANidine HCl 2 MG No 1{table t_as_ne eded} QD tiZANidine HCl 2 MG Nasacort AQ Nasacort AQ No Na sacort AQ metFORMIN HCl ER 500 MG metFORMIN HCl ER 500 MG No metFORMIN HCl ER 500 MG Metoprolol Tartrate 50 MG Metoprolol Tartrate 50 MG No Metoprolol Tartrate 50 MG Probiotic - Probiotic - No Pr obiotic - amLODIPine Besylate 5 MG amLODIPine Besylate 5 MG No amLODIPine Besylate 5 MG Nasacort AQ Nasacort AQ No Na sacort AQ Jardiance 10 MG Jardiance 10 MG No QD Jardiance 10 MG Aspirin 81 81 MG Aspirin 81 81 MG No 1{table t} QD Aspirin 81 81 MG Fish Oil 1000 MG Fish Oil 1000 MG No 1{capsu le} QD Fish Oil 1000 MG Metoprolol Tartrate 50 MG Metoprolol Tartrate 50 MG No Metoprolol Tartrate 50 MG Pravastatin Sodium 40 MG Pravastatin Sodium 40 MG No 1{table t} QD Pravastati n Sodium 40 MG Nitroglycer in 400 MCG/SPRAY Nitroglycer in 400 MCG/SPRAY No Nitroglyce rin 400 MCG/SPRAY NovoTwist Pen Needle 32G X 5 MM NovoTwist Pen Needle 32G X 5 MM No NovoTwist Pen Needle 32G X 5 MM Pen [place] 32G X 5 MM Pen [place] 32G X 5 MM No Pen [place] 32G X 5 MM Metoprolol Tartrate 50 MG Metoprolol Tartrate 50 MG No Metoprolol Tartrate 50 MG Meloxicam 7.5 MG Meloxicam 7.5 MG No 1{table t} QD Meloxicam 7.5 MG Pravastatin Sodium 40 MG Pravastatin Sodium 40 MG No Pravastati n Sodium 40 MG Multi Vitamin Multi Vitamin No Multi Vitamin Victoza 18 MG/3ML Victoza 18 MG/3ML No QD Victoza 18 MG/3ML Tylenol Tylenol No Tylenol CoQ-10 150 MG CoQ-10 150 MG No CoQ-10 150 MG Estradiol 10 MCG Estradiol 10 MCG No Estradiol 10 MCG Irbesartan 300 MG Irbesartan 300 MG No QD Irbesartan 300 MG metFORMIN HCl ER 500 MG metFORMIN HCl ER 500 MG No BID metFORMIN HCl ER 500 MG Victoza 18 MG/3ML Victoza 18 MG/3ML No QD Victoza 18 MG/3ML tiZANidine HCl 2 MG tiZANidine HCl 2 MG No 1{table t_as_ne eded} QD tiZANidine HCl 2 MG tiZANidine HCl 2 MG tiZANidine HCl 2 MG No 1{table t_as_ne eded} QD tiZANidine HCl 2 MG Nasacort AQ Nasacort AQ No Na sacort AQ metFORMIN HCl ER 500 MG metFORMIN HCl ER 500 MG No metFORMIN HCl ER 500 MG Probiotic - Probiotic - No Pr obiotic - amLODIPine Besylate 5 MG amLODIPine Besylate 5 MG No amLODIPine Besylate 5 MG Jardiance 10 MG Jardiance 10 MG No QD Jardiance 10 MG CoQ-10 150 MG CoQ-10 150 MG No CoQ-10 150 MG Aspirin 81 81 MG Aspirin 81 81 MG No 1{table t} QD Aspirin 81 81 MG Fish Oil 1000 MG Fish Oil 1000 MG No 1{capsu le} QD Fish Oil 1000 MG Metoprolol Tartrate 50 MG Metoprolol Tartrate 50 MG No Metoprolol Tartrate 50 MG Pravastatin Sodium 40 MG Pravastatin Sodium 40 MG No 1{table t} QD Pravastati n Sodium 40 MG Nitroglycer in 400 MCG/SPRAY Nitroglycer in 400 MCG/SPRAY No Nitroglyce rin 400 MCG/SPRAY NovoTwist Pen Needle 32G X 5 MM NovoTwist Pen Needle 32G X 5 MM No NovoTwist Pen Needle 32G X 5 MM Pen [place] 32G X 5 MM Pen [place] 32G X 5 MM No Pen [place] 32G X 5 MM Metoprolol Tartrate 50 MG Metoprolol Tartrate 50 MG No Metoprolol Tartrate 50 MG Meloxicam 7.5 MG Meloxicam 7.5 MG No 1{table t} QD Meloxicam 7.5 MG Pravastatin Sodium 40 MG Pravastatin Sodium 40 MG No Pravastati n Sodium 40 MG Irbesartan 300 MG Irbesartan 300 MG No QD Irbesartan 300 MG Multi Vitamin Multi Vitamin No Multi Vitamin Victoza 18 MG/3ML Victoza 18 MG/3ML No QD Victoza 18 MG/3ML Tylenol Tylenol No Tylenol CoQ-10 150 MG CoQ-10 150 MG No CoQ-10 150 MG Estradiol 10 MCG Estradiol 10 MCG No Estradiol 10 MCG Irbesartan 300 MG Irbesartan 300 MG No QD Irbesartan 300 MG metFORMIN HCl ER 500 MG metFORMIN HCl ER 500 MG No BID metFORMIN HCl ER 500 MG Victoza 18 MG/3ML Victoza 18 MG/3ML No QD Victoza 18 MG/3ML tiZANidine HCl 2 MG tiZANidine HCl 2 MG No 1{table t_as_ne eded} QD tiZANidine HCl 2 MG Nasacort AQ Nasacort AQ No Na sacort AQ metFORMIN HCl ER 500 MG metFORMIN HCl ER 500 MG No metFORMIN HCl ER 500 MG Probiotic - Probiotic - No Pr obiotic - amLODIPine Besylate 5 MG amLODIPine Besylate 5 MG No amLODIPine Besylate 5 MG Jardiance 10 MG Jardiance 10 MG No QD Jardiance 10 MG Aspirin 81 81 MG Aspirin 81 81 MG No 1{table t} QD Aspirin 81 81 MG Fish Oil 1000 MG Fish Oil 1000 MG No 1{capsu le} QD Fish Oil 1000 MG Metoprolol Tartrate 50 MG Metoprolol Tartrate 50 MG No Metoprolol Tartrate 50 MG Pravastatin Sodium 40 MG Pravastatin Sodium 40 MG No 1{table t} QD Pravastati n Sodium 40 MG Nitroglycer in 400 MCG/SPRAY Nitroglycer in 400 MCG/SPRAY No Nitroglyce rin 400 MCG/SPRAY NovoTwist Pen Needle 32G X 5 MM NovoTwist Pen Needle 32G X 5 MM No NovoTwist Pen Needle 32G X 5 MM Pen [place] 32G X 5 MM Pen [place] 32G X 5 MM No Pen [place] 32G X 5 MM Metoprolol Tartrate 50 MG Metoprolol Tartrate 50 MG No Metoprolol Tartrate 50 MG Meloxicam 7.5 MG Meloxicam 7.5 MG No 1{table t} QD Meloxicam 7.5 MG Pravastatin Sodium 40 MG Pravastatin Sodium 40 MG No Pravastati n Sodium 40 MG Multi Vitamin Multi Vitamin No Multi Vitamin Victoza 18 MG/3ML Victoza 18 MG/3ML No QD Victoza 18 MG/3ML Tylenol Tylenol No Tylenol CoQ-10 150 MG CoQ-10 150 MG No CoQ-10 150 MG Estradiol 10 MCG Estradiol 10 MCG No Estradiol 10 MCG Irbesartan 300 MG Irbesartan 300 MG No QD Irbesartan 300 MG metFORMIN HCl ER 500 MG metFORMIN HCl ER 500 MG No BID metFORMIN HCl ER 500 MG Victoza 18 MG/3ML Victoza 18 MG/3ML No QD Victoza 18 MG/3ML tiZANidine HCl 2 MG tiZANidine HCl 2 MG No 1{table t_as_ne eded} QD tiZANidine HCl 2 MG Nasacort AQ Nasacort AQ No Na sacort AQ metFORMIN HCl ER 500 MG metFORMIN HCl ER 500 MG No metFORMIN HCl ER 500 MG Probiotic - Probiotic - No Pr obiotic - amLODIPine Besylate 5 MG amLODIPine Besylate 5 MG No amLODIPine Besylate 5 MG Jardiance 10 MG Jardiance 10 MG No QD Jardiance 10 MG Aspirin 81 81 MG Aspirin 81 81 MG No 1{table t} QD Aspirin 81 81 MG Fish Oil 1000 MG Fish Oil 1000 MG No 1{capsu le} QD Fish Oil 1000 MG Metoprolol Tartrate 50 MG Metoprolol Tartrate 50 MG No Metoprolol Tartrate 50 MG Pravastatin Sodium 40 MG Pravastatin Sodium 40 MG No 1{table t} QD Pravastati n Sodium 40 MG Nitroglycer in 400 MCG/SPRAY Nitroglycer in 400 MCG/SPRAY No Nitroglyce rin 400 MCG/SPRAY NovoTwist Pen Needle 32G X 5 MM NovoTwist Pen Needle 32G X 5 MM No NovoTwist Pen Needle 32G X 5 MM Pen [place] 32G X 5 MM Pen [place] 32G X 5 MM No Pen [place] 32G X 5 MM Metoprolol Tartrate 50 MG Metoprolol Tartrate 50 MG No Metoprolol Tartrate 50 MG Meloxicam 7.5 MG Meloxicam 7.5 MG No 1{table t} QD Meloxicam 7.5 MG Pravastatin Sodium 40 MG Pravastatin Sodium 40 MG No Pravastati n Sodium 40 MG Multi Vitamin Multi Vitamin No Multi Vitamin Victoza 18 MG/3ML Victoza 18 MG/3ML No QD Victoza 18 MG/3ML Tylenol Tylenol No Tylenol CoQ-10 150 MG CoQ-10 150 MG No CoQ-10 150 MG Estradiol 10 MCG Estradiol 10 MCG No Estradiol 10 MCG Irbesartan 300 MG Irbesartan 300 MG No QD Irbesartan 300 MG metFORMIN HCl ER 500 MG metFORMIN HCl ER 500 MG No BID metFORMIN HCl ER 500 MG Victoza 18 MG/3ML Victoza 18 MG/3ML No QD Victoza 18 MG/3ML tiZANidine HCl 2 MG tiZANidine HCl 2 MG No 1{table t_as_ne eded} QD tiZANidine HCl 2 MG Nasacort AQ Nasacort AQ No Na sacort AQ metFORMIN HCl ER 500 MG metFORMIN HCl ER 500 MG No metFORMIN HCl ER 500 MG Probiotic - Probiotic - No Pr obiotic - amLODIPine Besylate 5 MG amLODIPine Besylate 5 MG No amLODIPine Besylate 5 MG Jardiance 10 MG Jardiance 10 MG No QD Jardiance 10 MG Aspirin 81 81 MG Aspirin 81 81 MG No 1{table t} QD Aspirin 81 81 MG Fish Oil 1000 MG Fish Oil 1000 MG No 1{capsu le} QD Fish Oil 1000 MG Metoprolol Tartrate 50 MG Metoprolol Tartrate 50 MG No Metoprolol Tartrate 50 MG Pravastatin Sodium 40 MG Pravastatin Sodium 40 MG No 1{table t} QD Pravastati n Sodium 40 MG Nitroglycer in 400 MCG/SPRAY Nitroglycer in 400 MCG/SPRAY No Nitroglyce rin 400 MCG/SPRAY NovoTwist Pen Needle 32G X 5 MM NovoTwist Pen Needle 32G X 5 MM No NovoTwist Pen Needle 32G X 5 MM Pen [place] 32G X 5 MM Pen [place] 32G X 5 MM No Pen [place] 32G X 5 MM Metoprolol Tartrate 50 MG Metoprolol Tartrate 50 MG No Metoprolol Tartrate 50 MG Meloxicam 7.5 MG Meloxicam 7.5 MG No 1{table t} QD Meloxicam 7.5 MG Pravastatin Sodium 40 MG Pravastatin Sodium 40 MG No Pravastati n Sodium 40 MG Multi Vitamin Multi Vitamin No Multi Vitamin Victoza 18 MG/3ML Victoza 18 MG/3ML No QD Victoza 18 MG/3ML Tylenol Tylenol No Tylenol CoQ-10 150 MG CoQ-10 150 MG No CoQ-10 150 MG Estradiol 10 MCG Estradiol 10 MCG No Estradiol 10 MCG Irbesartan 300 MG Irbesartan 300 MG No QD Irbesartan 300 MG metFORMIN HCl ER 500 MG metFORMIN HCl ER 500 MG No BID metFORMIN HCl ER 500 MG Victoza 18 MG/3ML Victoza 18 MG/3ML No QD Victoza 18 MG/3ML tiZANidine HCl 2 MG tiZANidine HCl 2 MG No 1{table [email or web address] eded} QD tiZANidine HCl 2 MG Nasacort AQ Nasacort AQ No Na sacort AQ metFORMIN HCl ER 500 MG metFORMIN HCl ER 500 MG No metFORMIN HCl ER 500 MG Probiotic - Probiotic - No Pr obiotic - amLODIPine Besylate 5 MG amLODIPine Besylate 5 MG No amLODIPine Besylate 5 MG Jardiance 10 MG Jardiance 10 MG No QD Jardiance 10 MG Aspirin 81 81 MG Aspirin 81 81 MG No 1{table t} QD Aspirin 81 81 MG Fish Oil 1000 MG Fish Oil 1000 MG No 1{capsu le} QD Fish Oil 1000 MG Metoprolol Tartrate 50 MG Metoprolol Tartrate 50 MG No Metoprolol Tartrate 50 MG Tylenol Tylenol No Tylenol Pravastatin Sodium 40 MG Pravastatin Sodium 40 MG No 1{table t} QD Pravastati n Sodium 40 MG Nitroglycer in 400 MCG/SPRAY Nitroglycer in 400 MCG/SPRAY No Nitroglyce rin 400 MCG/SPRAY NovoTwist Pen Needle 32G X 5 MM NovoTwist Pen Needle 32G X 5 MM No NovoTwist Pen Needle 32G X 5 MM Pen [place] 32G X 5 MM Pen [place] 32G X 5 MM No Pen [place] 32G X 5 MM Metoprolol Tartrate 50 MG Metoprolol Tartrate 50 MG No Metoprolol Tartrate 50 MG Meloxicam 7.5 MG Meloxicam 7.5 MG No 1{table t} QD Meloxicam 7.5 MG Pravastatin Sodium 40 MG Pravastatin Sodium 40 MG No Pravastati n Sodium 40 MG Multi Vitamin Multi Vitamin No Multi Vitamin Victoza 18 MG/3ML Victoza 18 MG/3ML No QD Victoza 18 MG/3ML Tylenol Tylenol No Tylenol Multi Vitamin Multi Vitamin No Multi Vitamin CoQ-10 150 MG CoQ-10 150 MG No CoQ-10 150 MG Estradiol 10 MCG Estradiol 10 MCG No Estradiol 10 MCG Irbesartan 300 MG Irbesartan 300 MG No QD Irbesartan 300 MG metFORMIN HCl ER 500 MG metFORMIN HCl ER 500 MG No BID metFORMIN HCl ER 500 MG Victoza 18 MG/3ML Victoza 18 MG/3ML No QD Victoza 18 MG/3ML tiZANidine HCl 2 MG tiZANidine HCl 2 MG No 1{table t_as_ne eded} QD tiZANidine HCl 2 MG Nasacort AQ Nasacort AQ No Na sacort AQ metFORMIN HCl ER 500 MG metFORMIN HCl ER 500 MG No metFORMIN HCl ER 500 MG Nitroglycer in 400 MCG/SPRAY Nitroglycer in 400 MCG/SPRAY No Nitroglyce rin 400 MCG/SPRAY Probiotic - Probiotic - No Pr obiotic - amLODIPine Besylate 5 MG amLODIPine Besylate 5 MG No amLODIPine Besylate 5 MG Jardiance 10 MG Jardiance 10 MG No QD Jardiance 10 MG Aspirin 81 81 MG Aspirin 81 81 MG No 1{table t} QD Aspirin 81 81 MG Fish Oil 1000 MG Fish Oil 1000 MG No 1{capsu le} QD Fish Oil 1000 MG Metoprolol Tartrate 50 MG Metoprolol Tartrate 50 MG No Metoprolol Tartrate 50 MG Aspirin 81 81 MG Aspirin 81 81 MG No 1{table t} QD Aspirin 81 81 MG Pravastatin Sodium 40 MG Pravastatin Sodium 40 MG No 1{table t} QD Pravastati n Sodium 40 MG Nitroglycer in 400 MCG/SPRAY Nitroglycer in 400 MCG/SPRAY No Nitroglyce rin 400 MCG/SPRAY NovoTwist Pen Needle 32G X 5 MM NovoTwist Pen Needle 32G X 5 MM No NovoTwist Pen Needle 32G X 5 MM Pen [place] 32G X 5 MM Pen [place] 32G X 5 MM No Pen [place] 32G X 5 MM Metoprolol Tartrate 50 MG Metoprolol Tartrate 50 MG No Metoprolol Tartrate 50 MG Meloxicam 7.5 MG Meloxicam 7.5 MG No 1{table t} QD Meloxicam 7.5 MG Pravastatin Sodium 40 MG Pravastatin Sodium 40 MG No Pravastati n Sodium 40 MG Multi Vitamin Multi Vitamin No Multi Vitamin Victoza 18 MG/3ML Victoza 18 MG/3ML No QD Victoza 18 MG/3ML Tylenol Tylenol No Tylenol Pravastatin Sodium 40 MG Pravastatin Sodium 40 MG No Pravastati n Sodium 40 MG CoQ-10 150 MG CoQ-10 150 MG No CoQ-10 150 MG Estradiol 10 MCG Estradiol 10 MCG No Estradiol 10 MCG Irbesartan 300 MG Irbesartan 300 MG No QD Irbesartan 300 MG metFORMIN HCl ER 500 MG metFORMIN HCl ER 500 MG No BID metFORMIN HCl ER 500 MG Victoza 18 MG/3ML Victoza 18 MG/3ML No QD Victoza 18 MG/3ML tiZANidine HCl 2 MG tiZANidine HCl 2 MG No 1{table t_as_ne eded} QD tiZANidine HCl 2 MG Nasacort AQ Nasacort AQ No Na sacort AQ metFORMIN HCl ER 500 MG metFORMIN HCl ER 500 MG No metFORMIN HCl ER 500 MG Estradiol 10 MCG Estradiol 10 MCG No Estradiol 10 MCG Probiotic - Probiotic - No Pr obiotic - amLODIPine Besylate 5 MG amLODIPine Besylate 5 MG No amLODIPine Besylate 5 MG Jardiance 10 MG Jardiance 10 MG No QD Jardiance 10 MG Aspirin 81 81 MG Aspirin 81 81 MG No 1{table t} QD Aspirin 81 81 MG Fish Oil 1000 MG Fish Oil 1000 MG No 1{capsu le} QD Fish Oil 1000 MG Metoprolol Tartrate 50 MG Metoprolol Tartrate 50 MG No Metoprolol Tartrate 50 MG Pravastatin Sodium 40 MG Pravastatin Sodium 40 MG No 1{table t} QD Pravastati n Sodium 40 MG Nitroglycer in 400 MCG/SPRAY Nitroglycer in 400 MCG/SPRAY No Nitroglyce rin 400 MCG/SPRAY NovoTwist Pen Needle 32G X 5 MM NovoTwist Pen Needle 32G X 5 MM No NovoTwist Pen Needle 32G X 5 MM Pen [place] 32G X 5 MM Pen [place] 32G X 5 MM No Pen [place] 32G X 5 MM Metoprolol Tartrate 50 MG Metoprolol Tartrate 50 MG No Metoprolol Tartrate 50 MG Meloxicam 7.5 MG Meloxicam 7.5 MG No 1{table t} QD Meloxicam 7.5 MG Pravastatin Sodium 40 MG Pravastatin Sodium 40 MG No Pravastati n Sodium 40 MG Multi Vitamin Multi Vitamin No Multi Vitamin Victoza 18 MG/3ML Victoza 18 MG/3ML No QD Victoza 18 MG/3ML Victoza 18 MG/3ML Victoza 18 MG/3ML No QD Victoza 18 MG/3ML Tylenol Tylenol No Tylenol CoQ-10 150 MG CoQ-10 150 MG No CoQ-10 150 MG Estradiol 10 MCG Estradiol 10 MCG No Estradiol 10 MCG Irbesartan 300 MG Irbesartan 300 MG No QD Irbesartan 300 MG metFORMIN HCl ER 500 MG metFORMIN HCl ER 500 MG No BID metFORMIN HCl ER 500 MG Victoza 18 MG/3ML Victoza 18 MG/3ML No QD Victoza 18 MG/3ML tiZANidine HCl 2 MG tiZANidine HCl 2 MG No 1{table t_as_ne eded} QD tiZANidine HCl 2 MG Nasacort AQ Nasacort AQ No Na sacort AQ metFORMIN HCl ER 500 MG metFORMIN HCl ER 500 MG No metFORMIN HCl ER 500 MG metFORMIN HCl ER 500 MG metFORMIN HCl ER 500 MG No BID metFORMIN HCl ER 500 MG amLODIPine Besylate 5 MG amLODIPine Besylate 5 MG No amLODIPine Besylate 5 MG Irbesartan 300 MG Irbesartan 300 MG No QD Irbesartan 300 MG tiZANidine HCl 2 MG tiZANidine HCl 2 MG No 1{table t_as_ne eded} QD tiZANidine HCl 2 MG Nitroglycer in 400 MCG/SPRAY Nitroglycer in 400 MCG/SPRAY No Nitroglyce rin 400 MCG/SPRAY Jardiance 10 MG Jardiance 10 MG No QD Jardiance 10 MG Metoprolol Tartrate 50 MG Metoprolol Tartrate 50 MG No Metoprolol Tartrate 50 MG Probiotic - Probiotic - No Pr obiotic - Pen [place] 32G X 5 MM Pen [place] 32G X 5 MM No Pen [place] 32G X 5 MM Tylenol Tylenol No Tylenol Multi Vitamin Multi Vitamin No Multi Vitamin Probiotic - Probiotic - No Pr obiotic - Victoza 18 MG/3ML Victoza 18 MG/3ML No QD Victoza 18 MG/3ML Aspirin 81 81 MG Aspirin 81 81 MG No 1{table t} QD Aspirin 81 81 MG Fish Oil 1000 MG Fish Oil 1000 MG No 1{capsu le} QD Fish Oil 1000 MG metFORMIN HCl ER 500 MG metFORMIN HCl ER 500 MG No BID metFORMIN HCl ER 500 MG CoQ-10 150 MG CoQ-10 150 MG No CoQ-10 150 MG Irbesartan 300 MG Irbesartan 300 MG No QD Irbesartan 300 MG amLODIPine Besylate 5 MG amLODIPine Besylate 5 MG No amLODIPine Besylate 5 MG Pravastatin Sodium 40 MG Pravastatin Sodium 40 MG No 1{table t} QD Pravastati n Sodium 40 MG Nasacort AQ Nasacort AQ No Na sacort AQ Pravastatin Sodium 40 MG Pravastatin Sodium 40 MG No 1{table t} QD Pravastati n Sodium 40 MG Victoza 18 MG/3ML Victoza 18 MG/3ML No QD Victoza 18 MG/3ML Irbesartan 300 MG Irbesartan 300 MG No QD Irbesartan 300 MG tiZANidine HCl 2 MG tiZANidine HCl 2 MG No 1{table t_as_ne eded} QD tiZANidine HCl 2 MG Nitroglycer in 400 MCG/SPRAY Nitroglycer in 400 MCG/SPRAY No Nitroglyce rin 400 MCG/SPRAY Fish Oil 1000 MG Fish Oil 1000 MG No 1{capsu le} QD Fish Oil 1000 MG Jardiance 10 MG Jardiance 10 MG No QD Jardiance 10 MG Metoprolol Tartrate 50 MG Metoprolol Tartrate 50 MG No Metoprolol Tartrate 50 MG Probiotic - Probiotic - No Pr obiotic - Pen [place] 32G X 5 MM Pen [place] 32G X 5 MM No Pen [place] 32G X 5 MM Tylenol Tylenol No Tylenol Multi Vitamin Multi Vitamin No Multi Vitamin Victoza 18 MG/3ML Victoza 18 MG/3ML No QD Victoza 18 MG/3ML Aspirin 81 81 MG Aspirin 81 81 MG No 1{table t} QD Aspirin 81 81 MG Fish Oil 1000 MG Fish Oil 1000 MG No 1{capsu le} QD Fish Oil 1000 MG metFORMIN HCl ER 500 MG metFORMIN HCl ER 500 MG No BID metFORMIN HCl ER 500 MG metFORMIN HCl ER 500 MG metFORMIN HCl ER 500 MG No metFORMIN HCl ER 500 MG CoQ-10 150 MG CoQ-10 150 MG No CoQ-10 150 MG Irbesartan 300 MG Irbesartan 300 MG No QD Irbesartan 300 MG amLODIPine Besylate 5 MG amLODIPine Besylate 5 MG No amLODIPine Besylate 5 MG Pravastatin Sodium 40 MG Pravastatin Sodium 40 MG No 1{table t} QD Pravastati n Sodium 40 MG Nasacort AQ Nasacort AQ No Na sacort AQ Jardiance 10 MG Jardiance 10 MG No QD Jardiance 10 MG Metoprolol Tartrate 50 MG Metoprolol Tartrate 50 MG No Metoprolol Tartrate 50 MG Irbesartan 300 MG Irbesartan 300 MG No QD Irbesartan 300 MG Nitroglycer in 400 MCG/SPRAY Nitroglycer in 400 MCG/SPRAY No Nitroglyce rin 400 MCG/SPRAY Metoprolol Tartrate 50 MG Metoprolol Tartrate 50 MG No Metoprolol Tartrate 50 MG Jardiance 10 MG Jardiance 10 MG No QD Jardiance 10 MG Victoza 18 MG/3ML Victoza 18 MG/3ML No QD Victoza 18 MG/3ML Probiotic - Probiotic - No Pr obiotic - Pen [place] 32G X 5 MM Pen [place] 32G X 5 MM No Pen [place] 32G X 5 MM Tylenol Tylenol No Tylenol Multi Vitamin Multi Vitamin No Multi Vitamin Irbesartan 300 MG Irbesartan 300 MG No QD Irbesartan 300 MG Aspirin 81 81 MG Aspirin 81 81 MG No 1{table t} QD Aspirin 81 81 MG Fish Oil 1000 MG Fish Oil 1000 MG No 1{capsu le} QD Fish Oil 1000 MG Nasacort AQ Nasacort AQ No Na sacort AQ Nasacort AQ Nasacort AQ No Na sacort AQ CoQ-10 150 MG CoQ-10 150 MG No CoQ-10 150 MG metFORMIN HCl ER 500 MG metFORMIN HCl ER 500 MG No BID metFORMIN HCl ER 500 MG amLODIPine Besylate 5 MG amLODIPine Besylate 5 MG No amLODIPine Besylate 5 MG Pravastatin Sodium 40 MG Pravastatin Sodium 40 MG No 1{table t} QD Pravastati n Sodium 40 MG tiZANidine HCl 2 MG tiZANidine HCl 2 MG No 1{table t_as_ne eded} QD tiZANidine HCl 2 MG tiZANidine HCl 2 MG tiZANidine HCl 2 MG No 1{table t_as_ne eded} QD tiZANidine HCl 2 MG CoQ-10 150 MG CoQ-10 150 MG No CoQ-10 150 MG Irbesartan 300 MG Irbesartan 300 MG No QD Irbesartan 300 MG amLODIPine Besylate 5 MG amLODIPine Besylate 5 MG No amLODIPine Besylate 5 MG CoQ-10 150 MG CoQ-10 150 MG No CoQ-10 150 MG metFORMIN HCl ER 500 MG metFORMIN HCl ER 500 MG No BID metFORMIN HCl ER 500 MG Meloxicam 7.5 MG Meloxicam 7.5 MG No 1{table t} QD Meloxicam 7.5 MG Victoza 18 MG/3ML Victoza 18 MG/3ML No QD Victoza 18 MG/3ML Metoprolol Tartrate 50 MG Metoprolol Tartrate 50 MG No Metoprolol Tartrate 50 MG Immunizations Ordered Immunization Name Filled Immunization Name Date Status Comments Source FluAD Flu 2021-02-28 09:40:00 Completed [facility] Flu[facility] Flu 2021-02-28 09:40:00 Completed [facility] FluAD Flu 2021-02-28 09:40:00 Completed [facility] FluAD FluAD 2021-02-28 09:40:00 Completed [facility] FluAD FluAD 2021-02-28 09:40:00 Completed [facility] FluAD FluAD 2021-02-28 09:40:00 Completed [facility] FluAD FluAD 2021-02-28 09:40:00 Completed [facility] FluAD FluAD 2021-02-28 09:40:00 Completed [facility] FluAD FluAD 2021-02-28 09:40:00 Completed [facility] FluAD FluAD 2021-02-28 09:40:00 Completed [facility] FluAD FluAD 2021-02-28 09:40:00 Completed [facility] FluAD FluAD 2021-02-28 09:40:00 Completed [facility] FluAD FluAD 2021-02-28 09:40:00 Completed [facility] FluAD FluAD 2021-02-28 09:40:00 Completed [facility] FluAD FluAD 2021-02-28 09:40:00 Completed [facility] FluAD FluAD 2021-02-28 09:40:00 Completed [facility] FluAD FluAD 2021-02-28 09:40:00 Completed [facility] FluAD FluAD 2021-02-28 09:40:00 Completed [facility] FluAD FluAD 2020-03-27 11:24:00 Completed [facility] FluAD FluAD 2020-03-27 11:24:00 Completed [facility] FluAD FluAD 2020-03-27 11:24:00 Completed [facility] FluAD FluAD 2020-03-27 11:24:00 Completed [facility] FluAD FluAD 2020-03-27 11:24:00 Completed [facility] FluAD FluAD 2020-03-27 11:24:00 Completed [facility] FluAD FluAD 2020-03-27 11:24:00 Completed [facility] FluAD FluAD 2020-03-27 11:24:00 Completed [facility] FluAD FluAD 2020-03-27 11:24:00 Completed [facility] FluAD FluAD 2020-03-27 11:24:00 Completed [facility] FluAD FluAD 2020-03-27 11:24:00 Completed [facility] FluAD FluAD 2020-03-27 11:24:00 Completed [facility] FluAD FluAD 2020-03-27 11:24:00 Completed [facility] FluAD FluAD 2020-03-27 11:24:00 Completed [facility] FluAD FluAD 2020-03-27 11:24:00 Completed [facility] FluAD FluAD 2020-03-27 11:24:00 Completed [facility] FluAD FluAD 2020-03-27 11:24:00 Completed [facility] FluAD FluAD 2020-03-27 11:24:00 Completed [facility] FluAD FluAD Unknown Completed [facility] FluAD FluAD Unknown Completed [facility] FluAD FluAD Unknown Completed [facility] FluAD FluAD Unknown Completed [facility] FluAD FluAD Unknown Completed [facility] FluAD FluAD Unknown Completed [facility] Vital Signs Vital Name Observation Time Observation Value Comments S ource height 2022-08-01 11:00:00 59.5 [in_i] Comm on [facility] weight 2022-08-01 11:00:00 150.6 [lb_av] Co mmon [facility] temperature 2022-08-01 11:00:00 97.6 [degF] Com mon [facility] bmi 2022-08-01 11:00:00 29.91 kg/m2 Comm on [facility] oximetry 2022-08-01 11:00:00 98 % Commo n [facility] respiratory rate 2022-08-01 11:00:00 18 /min Common [facility] blood pressure systolic 2022-08-01 11:00:00 116 mm[Hg] [facility] diastolic 2022-08-01 11:00:00 69 mm[Hg] Common [facility] height 2022-08-01 11:10:00 59.5 [in_i] Comm on [facility] weight 2022-08-01 11:10:00 150.6 [lb_av] Co mmon [facility] temperature 2022-08-01 11:10:00 97.6 [degF] Com [facility] bmi 2022-08-01 11:10:00 29.91 kg/m2 Comm on [facility] oximetry 2022-08-01 11:10:00 98 % Commo n [facility] respiratory rate 2022-08-01 11:10:00 18 /min [facility] blood pressure systolic 2022-08-01 11:10:00 116 mm[Hg] [facility] blood pressure diastolic 2022-08-01 11:10:00 69 mm[Hg] [facility] height 2022-05-30 10:30:00 59.5 [in_i] Comm on [facility] weight 2022-05-30 10:30:00 150 [lb_av] Comm on [facility] temperature 2022-05-30 10:30:00 98.3 [degF] Com [facility] bmi 2022-05-30 10:30:00 29.79 kg/m2 Comm on [facility] blood pressure systolic 2022-05-30 10:30:00 120 mm[Hg] Common [facility] blood pressure diastolic 2022-05-30 10:30:00 72 mm[Hg] [facility] height 2022-04-19 09:00:00 59.5 [in_i] Comm on [facility] weight 2022-04-19 09:00:00 150 [lb_av] Comm on [facility] temperature 2022-04-19 09:00:00 97.3 [degF] Com [facility] bmi 2022-04-19 09:00:00 29.79 kg/m2 Comm on [facility] blood pressure systolic 2022-04-19 09:00:00 130 mm[Hg] Common [facility] blood pressure diastolic 2022-04-19 09:00:00 74 mm[Hg] [facility] height 2022-01-31 10:30:00 59.5 [in_i] Comm on [facility] weight 2022-01-31 10:30:00 150 [lb_av] Comm on [facility] temperature 2022-01-31 10:30:00 98.2 [degF] Com [facility] bmi 2022-01-31 10:30:00 29.79 kg/m2 Comm on [facility] oximetry 2022-01-31 10:30:00 98 % Commo n [facility] respiratory rate 2022-01-31 10:30:00 16 /min [facility] blood pressure systolic 2022-01-31 10:30:00 132 mm[Hg] [facility] blood pressure diastolic 2022-01-31 10:30:00 65 mm[Hg] Common [facility] height 2022-01-31 10:40:00 60 [in_i] Commo n [facility] weight 2022-01-31 10:40:00 150 [lb_av] Comm on [facility] temperature 2022-01-31 10:40:00 98.2 [degF] Com mon [facility] bmi 2022-01-31 10:40:00 29.29 kg/m2 Comm on [facility] oximetry 2022-01-31 10:40:00 98 % Commo n [facility] respiratory rate 2022-01-31 10:40:00 16 /min Common [facility] blood pressure systolic 2022-01-31 10:40:00 132 mm[Hg] [facility] blood pressure diastolic 2022-01-31 10:40:00 65 mm[Hg] Common [facility] height 2021-10-19 16:40:00 60 [in_i] Commo n [facility] weight 2021-10-19 16:40:00 150 [lb_av] Comm on [facility] bmi 2021-10-19 16:40:00 29.29 kg/m2 Comm on [facility] height 2021-04-13 09:30:00 60 [in_i] Commo n [facility] weight 2021-04-13 09:30:00 147.5 [lb_av] Co mmon [facility] temperature 2021-04-13 09:30:00 98.2 [degF] Com mon [facility] bmi 2021-04-13 09:30:00 28.8 kg/m2 Commo n [facility] oximetry 2021-04-13 09:30:00 96 % Commo n [facility] respiratory rate 2021-04-13 09:30:00 16 /min Common [facility] blood pressure systolic 2021-04-13 09:30:00 134 mm[Hg] Common [facility] blood pressure diastolic 2021-04-13 09:30:00 70 mm[Hg] Common [facility] height 2021-01-11 09:50:00 60 [in_i] Commo n [facility] weight 2021-01-11 09:50:00 150.6 [lb_av] Co [facility] temperature 2021-01-11 09:50:00 98.2 [degF] Com [facility] bmi 2021-01-11 09:50:00 29.41 kg/m2 Comm on [facility] oximetry 2021-01-11 09:50:00 97 % Commo n [facility] respiratory rate 2021-01-11 09:50:00 17 /min Common [facility] blood pressure systolic 2021-01-11 09:50:00 135 mm[Hg] Common [facility] blood pressure diastolic 2021-01-11 09:50:00 73 mm[Hg] Common [facility] height 2021-01-11 09:50:00 60 [in_i] Commo n [facility] weight 2021-01-11 09:50:00 150.6 [lb_av] Co on [facility] temperature 2021-01-11 09:50:00 98.2 [degF] Com [facility] bmi 2021-01-11 09:50:00 29.41 kg/m2 Comm on [facility] oximetry 2021-01-11 09:50:00 97 % Commo n [facility] blood pressure systolic 2021-01-11 09:50:00 135 mm[Hg] [facility] blood pressure diastolic 2021-01-11 09:50:00 73 mm[Hg] [facility] height 2020-12-13 09:50:00 60 [in_i] Commo n [facility] weight 2020-12-13 09:50:00 153 [lb_av] Comm on [facility] temperature 2020-12-13 09:50:00 98.4 [degF] Com mon [facility] bmi 2020-12-13 09:50:00 29.88 kg/m2 Comm on [facility] height 2020-10-11 11:00:00 60 [in_i] Commo n [facility] weight 2020-10-11 11:00:00 153.2 [lb_av] Co mmon [facility] temperature 2020-10-11 11:00:00 97.5 [degF] Com mon [facility] bmi 2020-10-11 11:00:00 29.92 kg/m2 Comm on [facility] oximetry 2020-10-11 11:00:00 94 % Commo n [facility] respiratory rate 2020-10-11 11:00:00 17 /min [facility] blood pressure systolic 2020-10-11 11:00:00 133 mm[Hg] [facility] blood pressure diastolic 2020-10-11 11:00:00 70 mm[Hg] [facility] Encounters Start Date/Time End Date/Time Encounter Type Admission Type Attending Clinicians Care Facility Care Department Encounter ID Source 2022-10-25 13:11:01 [facility] [id number] [facility] 2022-04-19 09:45:08 Outpatient Migel [facility] [id number] [facility] 2022-04-12 15:04:02 Outpatient Migel [facility] [id number] [facility] 2022-01-31 10:12:04 Outpatient Migel [facility] [id number] [facility] 2020-02-19 13:00:00 Inpatient Daniel Hudson [facility] [id number] [facility] 2023-01-23 00:00:00 2023-01-23 00:00:00 (TEL) STLMLC STLMLC [id number] [facility] 2022-08-14 16:29:00 2022-08-14 16:29:00 Outpatient [facility] [id number] [facility] 2022-08-01 00:00:00 2022-08-01 00:00:00 OFFICE VISIT ESTAB PT LEVEL 4 [facility]LMLC STLMLC [id number] [facility] 2022-08-01 00:00:00 2022-08-01 00:00:00 SUB ANNUAL MCR WELLNESS VISIT STLMLC STLMLC [id number] [facility] 2022-05-30 00:00:00 2022-05-30 00:00:00 OFFICE VISIT EST PT LEVEL 3 [facility]LMLC STLMLC [id number] [facility] 2022-04-19 00:00:00 2022-04-19 00:00:00 OFFICE VISIT NEW PT LEVEL 4 STLMLC STLMLC [id number] [facility] 2022-01-31 00:00:00 2022-01-31 00:00:00 OFFICE VISIT ESTAB PT LEVEL 4 STLMLC STLMLC [id number] [facility] 2022-01-31 00:00:00 2022-01-31 00:00:00 SUB ANNUAL MCR WELLNESS VISIT STLMLC STLMLC [id number] [facility] 2022-01-03 00:00:00 2022-01-03 00:00:00 (TEL) STLMLC STLMLC [id number] [facility] 2021-10-19 00:00:00 2021-10-19 00:00:00 (TEL) STLMLC STLMLC [id number] [facility] 2021-10-19 00:00:00 2021-10-19 00:00:00 OFFICE VISIT ESTAB PT LEVEL 3 STLMLC STLMLC [id number] [facility] 2021-06-10 00:00:00 2021-06-10 00:00:00 (TEL) STLMLC STLMLC [id number] [facility] 2021-04-27 00:00:00 2021-04-27 00:00:00 (TEL) STLMLC STLMLC [id number] [facility] 2021-04-13 00:00:00 2021-04-13 00:00:00 OFFICE VISIT ESTAB PT LEVEL 4 STLMLC STLMLC [id number] [facility] 2021-02-01 00:00:00 2021-02-01 00:00:00 OFFICE VISIT ESTAB PT LEVEL 1 STLMLC STLMLC [id number] [facility] 2021-02-01 00:00:00 2021-02-01 00:00:00 (TEL) STLMLC STLMLC [id number] [facility] 2021-01-11 00:00:00 2021-01-11 00:00:00 OFFICE VISIT ESTAB PT LEVEL 4 STLMLC STLMLC [id number] [facility] 2021-01-11 00:00:00 2021-01-11 00:00:00 SUB ANNUAL [facility] WELLNESS VISIT STLMLC STLMLC [id number] [facility] 2020-12-13 00:00:00 2020-12-13 00:00:00 (TEL) STLMLC STLMLC [id number] [facility] 2020-12-13 00:00:00 2020-12-13 00:00:00 (TEL) STLMLC STLMLC [id number] [facility] 2020-12-13 00:00:00 2020-12-13 00:00:00 OFFICE VISIT ESTAB PT LEVEL 3 STLMLC STLMLC [id number] [facility] 2020-10-11 00:00:00 2020-10-11 00:00:00 OFFICE VISIT NEW PT LEVEL 3 STLMLC STLMLC [id number] [facility] Results Test Description Test Time Test Comments Results Result Co mments Source HEMOGLOBIN [id number] 00:00:00* Test Item Value Reference Range Interpretation Comme nts HEMOGLOBIN A1c (test code = 4548-4) 7.1 % See_Comment H [Automated messa ge] The system which generated this result transmitted reference range: 4.2-5.6 %. The reference range was not used to interpret this result as normal/abnormal. LIPID PANEL WITH REFLEX DIRECT [id number] 00:00:00* Test Item Value Reference Range Interpretation Comme nts CALC LDL CHOL (test code = 63451-2) 101 MG/DL See_Comment H [Automated messa ge] The system which generated this result transmitted reference range: <100 MG/DL. The reference range was not used to interpret this result as normal/abnormal. CHOLESTEROL (test code = 2093-3) 168 MG/DL See_Comment [Automated messa ge] The system which generated this result transmitted reference range: <200 MG/DL. The reference range was not used to interpret this result as normal/abnormal. HDL CHOLESTEROL (test code = 2085-9) 45 MG/DL See_Comment [Automated messa ge] The system which generated this result transmitted reference range: >39 MG/DL. The reference range was not used to interpret this result as normal/abnormal. RISK RATIO LDL/HDL (test code = 40083-2) 2.24 RATIO See_Comment [Automated message] The system which generated this result transmitted reference range: <3.22 RATIO. The reference range was not used to interpret this result as normal/abnormal. TRIGLYCERIDES (test code = 2571-8) 128 MG/DL See_Comment [Automated messa ge] The system which generated this result transmitted reference range: <150 MG/DL. The reference range was not used to interpret this result as normal/abnormal. ALBUMIN/CREATININE RATIO, RANDOM [id number] 00:00:00* Test Item Value Reference Range Interpretation Comme nts ALBUMIN, URINE, RANDOM (test code = 29509-7) 0.4 MG/DL NOT ESTAB MG/DL CALC ALBUMIN/CREAT, RND (test code = 01669-5) 7 MG/G See_Comment [Automated messa ge] The system which generated this result transmitted reference range: <30 MG/G. The reference range was not used to interpret this result as normal/abnormal. CREATININE, URINE, CONC. (test code = 2161-8) 55.8 MG/DL NOT ESTAB MG/DL COMPREHENSIVE METABOLIC [id number] 00:00:00* Test Item Value Reference Range Interpretation Comme nts ALBUMIN (test code = 1751-7) 4.3 G/DL See_Comment [Automated messa ge] The system which generated this result transmitted reference range: 3.5-5.2 G/DL. The reference range was not used to interpret this result as normal/abnormal. ALKALINE PHOSPHATASE (test code = 6768-6) 54 U/L See_Comment [Automated message] The system which generated this result transmitted reference range: 40-142 U/L. The reference range was not used to interpret this result as normal/abnormal. BILIRUBIN, TOTAL (test code = 1975-2) 0.5 MG/DL See_Comment [Automated message] The system which generated this result transmitted reference range: <=1.2 MG/DL. The reference range was not used to interpret this result as normal/abnormal. BUN (test code = 3094-0) 16 MG/DL See_Comment [Automated messa ge] The system which generated this result transmitted reference range: 8-23 MG/DL. The reference range was not used to interpret this result as normal/abnormal. CALCIUM (test code = 30500-7) 9.3 MG/DL See_Comment [Automated messa ge] The system which generated this result transmitted reference range: 8.5-10.5 MG/DL. The reference range was not used to interpret this result as normal/abnormal. CALC A/G RATIO (test code = 1759-0) 2.4 RATIO See_Comment [Automated messa ge] The system which generated this result transmitted reference range: 1.0-2.6 RATIO. The reference range was not used to interpret this result as normal/abnormal. CALC BUN/CREAT (test code = 3097-3) 22 RATIO See_Comment [Automated messa ge] The system which generated this result transmitted reference range: 6-28 RATIO. The reference range was not used to interpret this result as normal/abnormal. CALC GLOBULIN (test code = 33729-6) 1.8 G/DL See_Comment L [Automated messa ge] The system which generated this result transmitted reference range: 1.9-3.7 G/DL. The reference range was not used to interpret this result as normal/abnormal. CARBON DIOXIDE (test code = 1963-8) 30 MEQ/L See_Comment [Automated messa ge] The system which generated this result transmitted reference range: 19-31 MEQ/L. The reference range was not used to interpret this result as normal/abnormal. CHLORIDE (test code = 2075-0) 102 MEQ/L See_Comment [Automated messa ge] The system which generated this result transmitted reference range: 95-107 MEQ/L. The reference range was not used to interpret this result as normal/abnormal. CREATININE (test code = 2160-0) 0.72 MG/DL See_Comment [Automated messa ge] The system which generated this result transmitted reference range: 0.60-1.30 MG/DL. The reference range was not used to interpret this result as normal/abnormal. eGFR (2020 CKD-EPI) (test code = 26186-0) 88 ML/MIN/1.73 See_Comment [Automated messa ge] The system which generated this result transmitted reference range: >60 ML/MIN/1.73. The reference range was not used to interpret this result as normal/abnormal. GLUCOSE (test code = 1558-6) 135 MG/DL See_Comment H [Automated messa ge] The system which generated this result transmitted reference range: 70-99 MG/DL. The reference range was not used to interpret this result as normal/abnormal. POTASSIUM (test code = 2823-3) 3.9 MEQ/L See_Comment [Automated messa ge] The system which generated this result transmitted reference range: 3.5-5.4 MEQ/L. The reference range was not used to interpret this result as normal/abnormal. PROTEIN, TOTAL (test code = 2885-2) 6.1 G/DL See_Comment [Automated messa ge] The system which generated this result transmitted reference range: 6.1-8.3 G/DL. The reference range was not used to interpret this result as normal/abnormal. AST (test code = 1920-8) 21 U/L See_Comment [Automated messa ge] The system which generated this result transmitted reference range: 9-40 U/L. The reference range was not used to interpret this result as normal/abnormal. ALT (test code = 1742-6) 21 U/L See_Comment [Automated messa ge] The system which generated this result transmitted reference range: 5-40 U/L. The reference range was not used to interpret this result as normal/abnormal. SODIUM (test code = 2951-2) 141 MEQ/L See_Comment [Automated messa ge] The system which generated this result transmitted reference range: 133-146 MEQ/L. The reference range was not used to interpret this result as normal/abnormal. Glucose [id number] 20:12:00* Test Item Value Reference Range Interpretation Comme nts Glucose Fingerstick (test code = WGLUC) 110 mg/dL 70-115 [facility] Eug sowmya Lum Glucose [id number] 17:30:00* Test Item Value Reference Range Interpretation Comme nts Glucose Fingerstick (test code = WGLUC) 115 mg/dL 70-115 [facility] [employer] ALFRED RAJAN LY COMPREHENSIVE METABOLIC PANEL(CMP)2021-04-05 00:00:00* Test Item Value Reference Range Interpretation Comme nts ALBUMIN (test code = 1751-7) 3.8 g/dL See_Comment N [Automated message] The system which generated this result transmitted reference range: 3.6-5.1 g/dL. The reference range was not used to interpret this result as normal/abnormal. ALBUMIN/GLOBULIN RATIO (test code = 1759-0) 1.8 (calc) See_Comment N [Automated message] The system which generated this result transmitted reference range: 1.0-2.5 (calc). The reference range was not used to interpret this result as normal/abnormal. ALKALINE PHOSPHATASE (test code = 6768-6) 43 U/L See_Comment N [Automated message] The system which generated this result transmitted reference range: 37-153 U/L. The reference range was not used to interpret this result as normal/abnormal. ALT (test code = 1742-6) 22 U/L See_Comment N [Automated message] The system which generated this result transmitted reference range: 6-29 U/L. The reference range was not used to interpret this result as normal/abnormal. AST (test code = 1920-8) 19 U/L See_Comment N [Automated message] The system which generated this result transmitted reference range: 10-35 U/L. The reference range was not used to interpret this result as normal/abnormal. BILIRUBIN, TOTAL (test code = 1975-2) 0.7 mg/dL See_Comment N [Automated message] The system which generated this result transmitted reference range: 0.2-1.2 mg/dL. The reference range was not used to interpret this result as normal/abnormal. BUN/CREATININE RATIO (test code = 3097-3) NOT APPLICABLE (calc) See_Comment [Automated message] The system which generated this result transmitted reference range: 6-22 (calc). The reference range was not used to interpret this result as normal/abnormal. CALCIUM (test code = 88096-3) 9.3 mg/dL See_Comment N [Automated message] The system which generated this result transmitted reference range: 8.6-10.4 mg/dL. The reference range was not used to interpret this result as normal/abnormal. CARBON DIOXIDE (test code = 8-9) 30 mmol/L See_Comment N [Automated message] The system which generated this result transmitted reference range: 20-32 mmol/L. The reference range was not used to interpret this result as normal/abnormal. CHLORIDE (test code = 2075-0) 102 mmol/L See_Comment N [Automated message] The system which generated this result transmitted reference range: 98-110 mmol/L. The reference range was not used to interpret this result as normal/abnormal. CREATININE (test code = 2160-0) 0.68 mg/dL See_Comment N [Automated message] The system which generated this result transmitted reference range: 0.60-0.93 mg/dL. The reference range was not used to interpret this result as normal/abnormal. eGFR (test code = 47663-0) 101 mL/min/1.73m2 See_Comment N [Automated message] The system which generated this result transmitted reference range: > OR = 60 mL/min/1.73m2. The reference range was not used to interpret this result as normal/abnormal. eGFR NON-AFR. MACEDONIAN (test code = 30280-3) 87 mL/min/1.73m2 See_Comment N [Automated message] The system which generated this result transmitted reference range: > OR = 60 mL/min/1.73m2. The reference range was not used to interpret this result as normal/abnormal. GLOBULIN (test code = 63135-4) 2.1 g/dL (calc) See_Comment N [Automated message] The system which generated this result transmitted reference range: 1.9-3.7 g/dL (calc). The reference range was not used to interpret this result as normal/abnormal. GLUCOSE (test code = 2345-7) 127 mg/dL See_Comment H [Automated message] The system which generated this result transmitted reference range: 65-99 mg/dL. The reference range was not used to interpret this result as normal/abnormal. POTASSIUM (test code = 2823-3) 3.7 mmol/L See_Comment N [Automated message] The system which generated this result transmitted reference range: 3.5-5.3 mmol/L. The reference range was not used to interpret this result as normal/abnormal. PROTEIN, TOTAL (test code = 2885-2) 5.9 g/dL See_Comment L [Automated message] The system which generated this result transmitted reference range: 6.1-8.1 g/dL. The reference range was not used to interpret this result as normal/abnormal. SODIUM (test code = 2951-2) 139 mmol/L See_Comment N [Automated message] The system which generated this result transmitted reference range: 135-146 mmol/L. The reference range was not used to interpret this result as normal/abnormal. UREA NITROGEN (BUN) (test code = 3094-0) 20 mg/dL See_Comment N [Automated message] The system which generated this result transmitted reference range: 7-25 mg/dL. The reference range was not used to interpret this result as normal/abnormal. LIPID PANEL WITH REFLEX TO DIRECT [id number] 00:00:00* Test Item Value Reference Range Interpretation Comme nts CHOL/HDLC RATIO (test code = 9830-1) 3.9 (calc) See_Comment N [Automated [email or web address]] The system which generated this result transmitted reference range: <5.0 (calc). The reference range was not used to interpret this result as normal/abnormal. CHOLESTEROL, TOTAL (test code = 2093-3) 166 mg/dL See_Comment N [Automated message] The system which generated this result transmitted reference range: <200 mg/dL. The reference range was not used to interpret this result as normal/abnormal. HDL CHOLESTEROL (test code = 2085-9) 43 mg/dL See_Comment L [Automated [email or web address]] The system which generated this result transmitted reference range: > OR = 50 mg/dL. The reference range was not used to interpret this result as normal/abnormal. LDL-CHOLESTEROL (test code = 40700-5) 98 mg/dL (calc) N TRIGLYCERIDES (test code = 2571-8) 152 mg/dL See_Comment H [Automated messa ge] The system which generated this result transmitted reference range: <150 mg/dL. The reference range was not used to interpret this result as normal/abnormal. CBC (INCLUDES DIFF/PLT)2021-04-05 00:00:00* Test Item Value Reference Range Interpretation Comme nts ABSOLUTE BASOPHILS (test code = 704-7) 32 cells/uL See_Comment N [Automated m essage] The system which generated this result transmitted reference range: 0-200 cells/uL. The reference range was not used to interpret this result as normal/abnormal. ABSOLUTE EOSINOPHILS (test code = 711-2) 200 cells/uL See_Comment N [Automated m essage] The system which generated this result transmitted reference range: 15-500 cells/uL. The reference range was not used to interpret this result as normal/abnormal. ABSOLUTE LYMPHOCYTES (test code = 731-0) 1199 cells/uL See_Comment N [Automated m essage] The system which generated this result transmitted reference range: 850-3900 cells/uL. The reference range was not used to interpret this result as normal/abnormal. ABSOLUTE MONOCYTES (test code = 742-7) 421 cells/uL See_Comment N [Automated m essage] The system which generated this result transmitted reference range: 200-950 cells/uL. The reference range was not used to interpret this result as normal/abnormal. ABSOLUTE NEUTROPHILS (test code = 751-8) 3548 cells/uL See_Comment N [Automated m essage] The system which generated this result transmitted reference range: 2169-4622 cells/uL. The reference range was not used to interpret this result as normal/abnormal. BASOPHILS (test code = 706-2) 0.6 % N EOSINOPHILS (test code = 713-8) 3.7 % N HEMATOCRIT (test code = 4544-3) 37.7 % See_Comment N [Automated messa ge] The system which generated this result transmitted reference range: 35.0-45.0 %. The reference range was not used to interpret this result as normal/abnormal. HEMOGLOBIN (test code = 718-7) 12.6 g/dL See_Comment N [Automated messa ge] The system which generated this result transmitted reference range: 11.7-15.5 g/dL. The reference range was not used to interpret this result as normal/abnormal. LYMPHOCYTES (test code = 736-9) 22.2 % N MCH (test code = 785-6) 29.6 pg See_Comment N [Automated messa ge] The system which generated this result transmitted reference range: 27.0-33.0 pg. The reference range was not used to interpret this result as normal/abnormal. MCHC (test code = 786-4) 33.4 g/dL See_Comment N [Automated messa ge] The system which generated this result transmitted reference range: 32.0-36.0 g/dL. The reference range was not used to interpret this result as normal/abnormal. MCV (test code = 787-2) 88.7 fL See_Comment N [Automated messa ge] The system which generated this result transmitted reference range: 80.0-100.0 fL. The reference range was not used to interpret this result as normal/abnormal. MONOCYTES (test code = 5905-5) 7.8 % N MPV (test code = 776-5) 9.8 fL See_Comment N [Automated messa ge] The system which generated this result transmitted reference range: 7.5-12.5 fL. The reference range was not used to interpret this result as normal/abnormal. NEUTROPHILS (test code = 770-8) 65.7 % N PLATELET COUNT (test code = 777-3) 223 Thousand/uL See_Comment N [Automated message] The system which generated this result transmitted reference range: 140-400 Thousand/uL. The reference range was not used to interpret this result as normal/abnormal. RDW (test code = 788-0) 13.0 % See_Comment N [Automated messa ge] The system which generated this result transmitted reference range: 11.0-15.0 %. The reference range was not used to interpret this result as normal/abnormal. RED BLOOD CELL COUNT (test code = 789-8) 4.25 Million/uL See_Comment N [Automated message] The system which generated this result transmitted reference range: 3.80-5.10 Million/uL. The reference range was not used to interpret this result as normal/abnormal. WHITE BLOOD CELL COUNT (test code = 6690-2) 5.4 Thousand/uL See_Comment N [Automated message] The system which generated this result transmitted reference range: 3.8-10.8 Thousand/uL. The reference range was not used to interpret this result as normal/abnormal. MICROALBUMIN, RANDOM URINE (W/CREATININE)2021-04-05 00:00:00* Test Item Value Reference Range Interpretation Comme [facility] CREATININE, RANDOM URINE (test code = 2161-8) 79 mg/dL See_Comment N [Automated [employer]] The system which generated this result transmitted reference range: 20-275 mg/dL. The reference range was not used to interpret this result as normal/abnormal. ALBUMIN, URINE (test code = 46053-1) 0.6 mg/dL See Note: mg/dL N ALBUMIN/CREATININ E RATIO, RANDOM URINE (test code = 9318-7) 8 mcg/mg creat See_Comment N [Automated [employer]] The system which generated this result transmitted reference range: <30 mcg/mg creat. The reference range was not used to interpret this result as normal/abnormal. HEMOGLOBIN A1C WITH [id number] 00:00:00* Test Item Value Reference Range Interpretation Comme [facility] HEMOGLOBIN A1c (test code = 4548-4) 6.8 % of total Hgb See_Comment H [Automated message] The system which generated this result transmitted reference range: <5.7 % of total Hgb. The reference range was not used to interpret this result as normal/abnormal. MEAN PLASMA GLUCOSE (test code = 65719-7) 165 mg/dL (calc) STREP A [id number] 00:00:00* Test Item Value Reference Range Interpretation Comme nts Result (test code = 34901-4) Negative - MRI UP JNT W/O CONT [id number] 14:06:00Patient Name: KYLEE LYLES Unit No: [id number] EXAMS: CPT CODE: [id number] MRI UP JNT W/O CONT [id number] MRI OF THE RIGHT SHOULDER DIAGNOSIS: 1. Partial tear of the superior subscapularis tendon andof the proximal biceps tendon with tendinosis and medial subluxation of the biceps tendon. There isan associated SLAP tear of the labrum which extends into the posterior superior labrum. 2. Low-grade partial-thickness intrasubstance tearing of the supraspinatus tendon without tendon retraction or muscular atrophy. COMMENT: COMPARISON: No prior exams available. Scans were performed in the paracoronal, parasagittal and axial planes utilizing T1 , spin density with fat saturation and T2-weightingwith and without fat saturation. The infraspinatus tendon is within normal limits in appearance. The remainder the rotator cuff is as described. The acromion is horizontal with AC joint degenerative change. The labrum is torn as noted. A moderate joint effusion is seen with a small amount of bursalfluid. at 1406 Reported and signed by: Praneeth Varma MD CC: Daniel Stallings MD Technologist: Candace Gonzalez(R) Tr anscribed D/ (8138) [email or web address] [facility] NAME: KYLEE LYLES [address] [place] [address] PHYS: Daniel Gomez MD : 1950 AGE: 70 SEX: F [place] [address] LOC: Y.MRI PHONE #: [phone] EXAM DATE: 02/19/2020 STATUS: REG CLI FAX #: [phone] RAD #: D/C DT PAGE 1 Signed Report Patient Name: KYLEE LYLES Unit No: [id number] EXAMS:CPT CODE: [id number] MRI UP JNT W/[place] [address] (Continued) Orig Print D/T: S: 02/19/2020 (1409) [facility] NAME: KYLEE LYLES [address] [place] [address] PHYS: Daniel Gomez MD : 1950 AGE: 70 SEX: F [place] [address] LOC: Y.MRI PHONE #: [phone] EXAM DATE: 02/19/2020 STATUS: REG CLI FAX #: [phone] RAD #: D/C DT PAGE 2 Signed ReportSARS-COV 2 AntigenSARS-COV 2 AntigenSARS-COV 2 AntigenSARS-COV 2 Antigen
--- NOTE | 2023-05-20 19:55 | RAD REPORT ---
EXAM DESCRIPTION: RAD - Chest Pa And Lat (2 Views) - 05/20/2023 7:00 pm CLINICAL HISTORY: Congestion;Cough COMPARISON: No comparisons TECHNIQUE: PA and lateral views of the chest were obtained. FINDINGS: The lungs are clear. Heart size is normal and central vasculature is within normal limits. No pleural effusion or pneumothorax seen. No acute bony finding noted. IMPRESSION: No acute cardiopulmonary process.
[2023-05-20 20:04] LABS: SARS-CoV-2 Antigen Rapid Res Negative (Negative)
--- NOTE | 2023-05-20 20:11 | EDPHYS ---
Physician Documentation [facility] Name: Kylee Lyles Age: 73 yrs Sex: Female : 1950 Arrival Date: 05/20/2023 Time: 15:44 Bed 9 Private MD: [facility] ED Physician Carlos Chavez HPI: 05/20 18:28 This 73 yrs old Female presents to ER via Ambulatory with complaints of Flu Symptoms. sb4 18:28 Patient states that she started feeling poorly about 4 days ago with cough, fever, sb4 congestion. She went to urgent care and had a flu swab done that was negative. She was discharged with Augmentin. She states that her symptoms have improved mildly but that she is still feeling very poorly. Historical: - Allergies: 16:06 No Known Allergies; db - Immunization history:: Adult Immunizations unknown. - Social history:: Smoking status: Patient denies any tobacco usage or history of. ROS: 18:28 Cardiovascular: Negative for chest pain, palpitations, and edema, sb4 18:28 Constitutional: Positive for body aches, fever, malaise, 18:28 ENT: Positive for nasal discharge, sinus congestion, 18:28 Cardiovascular: 18:28 Respiratory: Positive for cough, 18:28 All other systems are negative, Exam: 18:28 Constitutional: This is a well developed, well nourished patient who is awake, alert, sb4 and in no acute distress. Head/Face: Normocephalic, atraumatic. Eyes: Extra-ocular motions intact. Periorbital areas with no swelling, redness, or edema. ENT: Mucous membranes moist. Cardiovascular: Regular rate and rhythm with a normal S1 and S2. Respiratory: Lungs have equal breath sounds bilaterally, clear to auscultation and percussion. No rales, rhonchi or wheezes noted. No increased work of breathing, no retractions or nasal flaring. Abdomen/GI: Soft, non-tender, no distension. Skin: Warm, dry with normal turgor. Normal color with no rashes, no lesions, and no evidence of cellulitis. MS/ Extremity: Pulses equal, no cyanosis. Neurovascular intact. Full, normal range of motion. Neuro: Awake and alert, GCS 15, oriented to person, place, time, and situation. Motor strength 5/5 in all extremities. Sensory grossly intact. Vital Signs: 16:03 BP 140 / 73; Pulse 74; Resp 16; Temp 98.1; Pulse Ox 97% ; Weight 67.59 kg; Height 4 ft. db 11 in. ; 20:18 BP 135 / 72; Pulse 72; Resp 16; Pulse Ox 98% ; ko1 16:03 Body Mass Index 30.09 (67.59 kg, 149.86 cm) db MDM: 17:01 Patient medically screened. sb4 18:28 Differential diagnosis: Pneumonia, URI, flu. sb4 20:10 Data reviewed: vital signs, nurses notes, lab test result(s), radiologic studies, and sb4 as a result, I will discharge patient. Counseling: I had a detailed discussion with the patient and/or guardian regarding the historical points, exam findings, and any diagnostic results supporting the discharge/admit diagnosis, lab results, radiology results, to return to the emergency department if symptoms worsen or persist or if there are any questions or concerns that arise at home. 05/20 18:28 Order name: Flu; Complete Time: 20:06 sb4 05/20 18:28 Order name: SARS RAPID; Complete Time: 20:06 sb4 05/20 18:25 Order name: Chest Pa And Lat (2 Views) XRAY; Complete Time: 19:57 sb4 Administered Medications: 19:37 Drug: Dexamethasone IM 10 mg IM once Route: IM; Site: right deltoid; ko1 Disposition: 05/21 07:06 Co-signature as Attending Physician, Carlos Chavez MD I reviewed the patient's care rt provided by the Advanced Practice Provider and agree with the diagnosis and treatment plan. Disposition Summary: 05/20/23 20:10 Discharge Ordered Notes: Location: Home sb4 Problem: an ongoing problem sb4 Symptoms: are unchanged sb4 Condition: Stable sb4 Diagnosis - Influenza A sb4 Followup: sb4 - With: Tommy Lainez, DO - When: 2 - 3 days - Reason: Recheck today's complaints, Re-evaluation by your physician Discharge Instructions: - Discharge Summary Sheet sb4 - Influenza, Adult, [id number] sb4 Forms: - Medication Reconciliation Form sb4 - Thank You Letter sb4 - Antibiotic Education sb4 - Prescription Opioid Use sb4 - Patient Portal Instructions sb4 - Leadership Thank You Letter sb4 Signatures: Dispatcher [employer] Uzma Rucker, RN RN ko1 Vernell Mccallum, RN RN rTacey Wu, SUZANNE PARahat sb4 Carlos Chavez MD MD rt Corrections: (The following items were deleted from the chart) 05/20 20:10 20:10 Acute upper respiratory infection, unspecified sb4 sb4
--- NOTE | 2023-05-20 20:11 | ER ---
Nurse's Notes [facility] Name: Kylee Lyles Age: 73 yrs Sex: Female : 1950 Arrival Date: 05/20/2023 Time: 15:44 Bed 9 Private MD: Tommy Lainez Diagnosis: Influenza A Presentation: 05/20 16:03 Chief complaint: Patient states: COLD SYMPTOMS SINCE 05/16. PT WENT TO URGENT CARE AND db TESTS WERE NEGATIVE. STATES STILL HAS SYMPTOMS. FEVER HAS IMPROVED. STARTED AUGMENTIN AND PROMETHAZINE DM. Coronavirus screen: Client denies travel out of the [place] in the last 14 days. At this time, the client does not indicate any symptoms associated with coronavirus-19. Coronavirus screen: Vaccine status: Patient reports receiving the 2nd dose of the covid vaccine. Ebola Screen: Patient negative for fever greater than or equal to 101.5 degrees Fahrenheit, and additional compatible Ebola Virus Disease symptoms Patient denies exposure to infectious person. Patient denies travel to an Ebola-affected area in the 21 days before illness onset. No symptoms or risks identified at this time. Initial Sepsis Screen: Does the patient meet any 2 criteria? No. Patient's initial sepsis screen is negative. Does the patient have a suspected source of infection? No. Patient's initial sepsis screen is negative. Risk Assessment: Do you want to hurt yourself or someone else? Patient reports no desire to harm self or others. Onset of symptoms was May 20, 2023. 16:03 Method Of Arrival: Ambulatory db 16:03 Acuity: COLLIN 4 db Triage Assessment: 16:06 General: Appears in no apparent distress. comfortable, Behavior is calm, cooperative. db Pain: Denies pain. Neuro: Level of Consciousness is awake, alert, obeys commands, Oriented to person, place, time, situation. Historical: - Allergies: 16:06 No Known Allergies; db - Immunization history:: Adult Immunizations unknown. - Social history:: Smoking status: Patient denies any tobacco usage or history of. Screenin:22 [facility] ED Fall Risk Assessment (Adult) History of falling in the last 3 months, db including since admission No falls in past 3 months (0 pts) Confusion or Disorientation No (0 pts) Intoxicated or Sedated No (0 pts) Impaired Gait No (0 pts) Mobility Assist Device Used No (0 pt) Altered Elimination No (0 pt) Score/Fall Risk Level 0 - 2 = Low Risk Oriented to surroundings, Maintained a safe environment. Abuse screen: Denies threats or abuse. Denies injuries from another. Nutritional screening: No deficits noted. Tuberculosis screening: No symptoms or risk factors identified. Assessment: 18:22 Reassessment: Patient appears in no apparent distress at this time. Patient and/or db family updated on plan of care and expected duration. Pain level reassessed. Patient is alert, oriented x 3, equal unlabored respirations, skin warm/dry/pink. General: Appears in no apparent distress. comfortable, Behavior is calm, cooperative. Vital Signs: 16:03 BP 140 / 73; Pulse 74; Resp 16; Temp 98.1; Pulse Ox 97% ; Weight 67.59 kg; Height 4 ft. db 11 in. ; 20:18 BP 135 / 72; Pulse 72; Resp 16; Pulse Ox 98% ; ko1 16:03 Body Mass Index 30.09 (67.59 kg, 149.86 cm) db ED Course: 15:47 Patient arrived in ED. mr 15:47 Wero Jernigan MD is Private Physician. mr 15:47 Tommy Lainez DO is Private Physician. mr 16:06 Triage completed. db 16:06 Arm band placed on Patient placed in waiting room. db 17:01 Tracey Corea PA-C is PHCP. sb4 17:01 Carlos Chavez MD is Attending Physician. sb4 18:22 Patient has correct armband on for positive identification. Bed in low position. Call db light in reach. Side rails up X 1. 19:02 Chest Pa And Lat (2 Views) XRAY In Process Unspecified. EDMS 20:10 Tommy Lainez DO is Referral Physician. sb4 20:18 Provided Education on: na. ko1 20:18 No provider procedures requiring assistance completed. IV discontinued, intact, ko1 bleeding controlled, No redness/swelling at site. Pressure dressing applied. Administered Medications: 19:37 Drug: Dexamethasone IM 10 mg IM once Route: IM; Site: right deltoid; ko1 Medication: 18:22 VIS not applicable for this client. db Outcome: 20:10 Discharge ordered by . sb4 20:18 Discharged to home ambulatory, with family, ko1 20:18 Condition: stable 20:18 Discharge instructions given to patient, family, Instructed on discharge instructions, follow up and referral plans. Demonstrated understanding of instructions, follow-up care, 20:21 Patient left the ED. ko1 Signatures: Dispatcher [employer] EDAR RicardoGema, Reg Reg mr Uzma Franklin RN RN ko1 Vernell Mccallum RN RN db Brown, Sophia, PARemyC PA-C sb4 Corrections: (The following items were deleted from the chart) 18:23 18:22 Provided Education on: DISCHARGE. hernandez ng
[2023-05-20 21:37] VITALS: BP 135/72; TEMP 98.1; O2SAT 98
== END ==
LOC: ER 15:44
DX: J10.1 Influenza due to other identified influenza virus with other respiratory manifestations (principal); Z11.52 Encounter for screening for COVID-19
CPT/HCPCS: 36415; 87804 ×2; 71046; 96372; 99284; 87811; J1100